=== PATIENT | female | born 1990 | race Caucasian/White ===

== ENCOUNTER 2017-04-25 08:08 | Emergency (ER) | payer MEDICAID ==
[~2017-04-25] VITALS: Ht 152.4 cm; Wt 46.8 kg
[~2017-04-25 08:08] MED LIST: LEXA5TAB PO; ZYPR10TA PO
[2017-04-25 08:13] VITALS: BP 139/68; PULSE 130; RESP 16; TEMP 98.1; O2SAT 98
[2017-04-25] MEDS ORDERED: VENL75TA PO (08:20)
[2017-04-25] MEDS ORDERED: AMIT100T2 PO (08:20)
[2017-04-25] MEDS ORDERED: PERC7.5T13 PO (08:33)
--- NOTE | 2017-04-25 08:34 | PD ---
HPI Chief Complaint: Oral / Dental Pain or Problem Time Seen by Provider: 08:19 Travel History International Travel<30 days: No Contact w/Intl Traveler<30days: No Traveled to known affect area: No History of Present Illness HPI This 26-year-old female is complaining of left-sided tooth pain. She has implants in her upper teeth. Her mandibular teeth are in poor condition she's been told she needs multiple extractions. She started having pain in the left lower posterior molar yesterday. The pain is quite severe. She went to urgent care and was given prescription for ibuprofen and clindamycin. The ibuprofen has not helped. She has not yet started the clindamycin PFS Past Medical History ADHD: Yes Asthma: Yes Autoimmune Disease: No Blood Disorders: No Bipolar Disorder: Yes Cancer: No High Cholesterol: No Chemotherapy: No Chest Pain: No Congestive Heart Failure: No COPD: No Cerebrovascular Accident: No Diabetes: No Diminished Hearing: No Endocrine: No Gastrointestinal Disorders: No Genitourinary: No Hepatitis: No Hypertension: No Immune Disorder: No Musculoskeletal: No Neurologic: No Psychiatric: Yes (hx HBS in September 2005, PTSD) Reproductive: No Respiratory: Yes (ASTHMA) Immunizations Current: Yes Migraines: No Myocardial Infarction: No Seizures: Yes (LAST SEIZURE 2007 YRS AGO) Sickle Cell Disease: No Thyroid Disease: No Ulcer: No Tetanus Vaccination: Unknown ?: Not : 2 Para: 1 Miscarriage: 1 Ectopic : Yes Tubal Ligation: Yes Past Surgical History Appendectomy: No Cholecystectomy: No Other Surgery: No Social History Alcohol Use: No Tobacco Use: Yes (1-2 PPD) Substance Use: No (DENIES) Allergies-Medications (Allergen,Severity, Reaction): Coded Allergies: codeine (Unverified Allergy, Severe, RASH, 04/25/17) diphenhydramine (Unverified Allergy, Severe, TONGUE SWELLING, 04/25/17) penicillin G (Unverified Allergy, Severe, RASH, 04/25/17) penicillin V (Unverified Allergy, Severe, RASH, 04/25/17) ziprasidone (Unverified Allergy, Severe, DECREASED BP/SYNCOPE, 04/25/17) acetaminophen (Unverified Allergy, Unknown, vomiting, 04/25/17) hydrocodone (Unverified Allergy, Unknown, vomiting, 04/25/17) Reported Meds & Prescriptions Reported Meds & Active Scripts Active Reported Amitriptyline (Amitriptyline HCl) 100 Mg Tab 100 Mg PO HS Effexor (Venlafaxine HCl) 75 Mg Tab 75 Mg PO DAILY Review of Systems General / Constitutional: No: Fever, Chills HENT: Positive: Dental Difficulties Cardiovascular: No: Chest Pain or Discomfort Respiratory: No: Shortness of Breath Gastrointestinal: No: Diarrhea Skin: No Rash Physical Exam Narrative GENERAL: Well-developed female SKIN: Focused skin assessment warm/dry. HEAD: Atraumatic. Normocephalic. EYES: Pupils equal and round. No scleral icterus. No injection or drainage. ENT: No nasal bleeding or discharge. Mucous membranes pink and moist. Maxillary teeth are plate in good repair. The mandibular teeth NEC have multiple caries. The left posterior molar is broken off and surrounding gum is quite swollen K: Trachea midline. No JVD. CARDIOVASCULAR: Regular rate and rhythm. No murmur appreciated. RESPIRATORY: No accessory muscle use. Clear to auscultation. Breath sounds equal bilaterally. GASTROINTESTINAL: Abdomen soft, non-tender, nondistended. Hepatic and splenic margins not palpable. MUSCULOSKELETAL: No obvious deformities. No clubbing. No cyanosis. No edema. NEUROLOGICAL: Awake and alert. No obvious cranial nerve deficits. Motor grossly within normal limits. Normal speech. PSYCHIATRIC: Appropriate mood and affect; insight and judgment normal. Data Data Last Documented VS Vital Signs Date Time Temp Pulse Resp B/P (MAP) Pulse Ox O2 Delivery O2 Flow Rate FiO2 04/25/17 08:13 98.1 130 16 139/68 (91) 98 MDM Medical Decision Making Medical Screen Exam Complete: Yes Emergency Medical Condition: Yes Medical Record Reviewed: Yes Differential Diagnosis Differential includes dental caries, abscess Narrative Course Presentation is consistent with abscess. I told her the importance of taking the clindamycin. She is allergic to penicillin. Ibuprofen has not helped her pain. I told him continue the ibuprofen but I will prescribe Percocet for taken in addition to the ibuprofen. Importance of dental follow-up was stressed Diagnosis Primary Impression: Dental abscess Scripts Oxycodone-Acetaminophen (Percocet) 7.5-325 mg Tab 1 TAB PO Q4H Y for PAIN, #15 TAB 0 Refills Prov: James Toth MD 04/25/17 Disposition: 01 DISCHARGE HOME Condition: Stable James Toth MD Apr 25, 2017 08:33
== END 2017-04-25 08:49 | disposition home or self-care (01) ==
LOC: PHED 08:08
DX: K04.7 Periapical abscess without sinus (principal); F31.9 Bipolar disorder, unspecified; F17.200 Nicotine dependence, unspecified, uncomplicated
CPT/HCPCS: 99283

== ENCOUNTER 2017-06-15 14:43 | Emergency (ER) | payer MEDICAID ==
[~2017-06-15] VITALS: Ht 152.4 cm; Wt 47.0 kg
[~2017-06-15 14:43] MED LIST changes: +AMIT100T2 PO; -LEXA5TAB PO; +PERC7.5T13 PO; +VENL75TA PO; -ZYPR10TA PO
[2017-06-15 14:56] VITALS: BP 143/70; PULSE 118; RESP 18; TEMP 98.3; O2SAT 93
== END 2017-06-15 15:37 | disposition left against medical advice (07) ==
LOC: PHEFT 14:43
DX: Z00.00 Encounter for general adult medical examination without abnormal findings (principal)
CPT/HCPCS: 99281

== ENCOUNTER 2017-12-24 21:34 | Inpatient (IN) ==
[2017-12-24] MEDS ORDERED: Sod Chloride 0.9% Inj 1,000 ML IV.SIG ONE (21:47)
[2017-12-24] MEDS ORDERED: Charcoal Activated Liq 25 GM/120 ML Bottle NG/OG ONE (21:55)
--- NOTE | 2017-12-24 21:55 | ED ---
HPI General Chief Complaint: Overdose Stated Complaint: Pysch Eval/DBPD Time Seen by Provider: 12/24/17 21:47 History of Present Illness HPI Narrative: The patient is a 27 year old female who presents to the [facility] emergency department with a history of intentionally overdosing on amitriptyline prior to arrival. The patient reports that she did this at approximately 9:05 PM. The patient reports that she took 14 tablets of her 100 mg amitriptyline. She reports that she does have a history of anxiety, depression, posttraumatic stress disorder, and previous diagnosis of bipolar disorder. She reports that this medication is her medication. She reports that she is also on Effexor and takes Advil as needed pain. She denies ever attempting suicide previously. The patient is tearful, intermittently crying on examination. When asked questions, she is not providing any significant history or reasoning behind this attempted overdose. She repeatedly is asking for her to come back and see her. The patient according to ambulance services had one episode of vomiting after the ingestion approximately 15 minutes after the ingestion. There were no pill fragments noted. LMP: 1-2 weeks ago. Related Data Home Medications Medication Instructions Recorded Confirmed venlafaxine [Effexor XR] 75 mg PO DAILY 12/24/17 12/24/17 Allergies Allergy/AdvReac Type Severity Reaction Status Date / Time codeine Allergy Severe RASH Verified 12/24/17 22:45 diphenhydramine Allergy Severe TONGUE Verified 12/24/17 22:45 SWELLING penicillin G Allergy Severe RASH Verified 12/24/17 22:45 penicillin V Allergy Severe RASH Verified 12/24/17 22:45 ziprasidone Allergy Severe DECREASED Verified 12/24/17 22:45 BP/SYNCOPE acetaminophen Allergy Unknown vomiting Verified 12/24/17 22:45 hydrocodone Allergy Unknown vomiting Verified 12/24/17 22:45 Review of Systems ROS Unobtainable unobtainable due to mental condition (The patient is tearful on examination, resistant to answering questions regarding review of systems her recent history. 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 Medical History Medical History Bipolar disorder (Acute) PTSD (post-traumatic stress disorder) (Acute) Surgical History Surgical History History of bilateral tubal ligation (Acute) Social History Social History Substance History: No History of Abuse Second Hand Smoke Exposure: Yes Smoking Status: Current every day smoker Tobacco Type: Cigarettes Packs Per Day: 1.5 Cigarettes Per Day: 30.0 How Often Do You Have a Drink Containing Alcohol: Never Recent Travel in [facility] within the Last 8 Weeks: No Recent Out of Country Travel within the Last 8 Weeks: No Exam Const General: cooperative, well developed and acute distress (Intermittently tearful on examination, in no medical distress) Nutritional Appearance: well nourished Orientation: alert, awake and oriented x3 HENMT Head: normocephalic and atraumatic Nose: no nasal discharge and no epistaxis Mouth: moist mucous membranes Throat: posterior oropharynx normal and uvula midline Eyes Sclera: normal sclerae Pupils: PERRL Neck Neck: trachea midline and no JVD Resp Effort & Inspection: no use of accessory muscles Auscultation: clear to auscultation bilaterally Cardio Rate: tachycardic (No pulse deficits to the extremities on simultaneous auscultation and palpation of her radial artery) Rhythm: regular rhythm Heart Sounds: no gallops, no murmurs and no rubs GI Inspection: non-distended Palpation: soft, no hepatosplenomegaly and nontender Auscultation: normal bowel sounds Back/Spine/Pelvis Back: no CVA tenderness Skin General: dry skin (warm) Neuro General: alert, awake, oriented x3 and other (No facial asymmetry.) Cranial Nerves: other Speech: speech normal Motor: strength 5/5 throughout and no movement abnormalities noted Sensory Exam: no sensory deficits noted Extrem General: normal to inspection (Plus pulses in all 4 extremities. No calf tenderness on palpation.), no clubbing, no cyanosis and no edema Psych Affect: sad Attitude: cooperative Judgment: poor Course Reevaluation(s) Reevaluation #1: The patient on reevaluation has had a decline in her mentation , increasingly confused, oriented to person, however not place, time, or situation. The patient is becoming agitated. The patient will be given Ativan 1 mg IV. Reevaluation #2: The patient's repeat EKG reveals a sinus tachycardia with heart rate of 143, QRS duration is 113 ms, prolonged compared to the initial EKG , therefore 100 mEq of bicarbonate will be administered. A call was placed back out to poison control regarding this patient's case. The patient's QTC is 440 ms. A call has been placed out to the retail representative regarding admission. Reevaluation #3: The patient was started on a bicarbonate drip after the initial bolus of bicarb per the recommendations of poison control. Consultations Consultation #1: I spoke to Poison Control, Stephania, regarding this patient's case. She recommended the laboratory studies that have been previously ordered. She additionally recommended that the EKG be repeated every 2 hours for at least 3 EKGs. She recommended that if the patient tolerated p.o. that the patient be given a dose of activated charcoal. Time: 21:53 Consultation #2: The patient's case including history, pertinent physical examination findings, and laboratory studies were discussed with Dr. Saldivar, the retail representative. It was agreed that the patient would be admitted to the retail representative 's service. Initial Documented Vital Signs Pulse Oximetry 98 12/24/17 21:47 Last Documented Vital Signs Temperature 98.1 F 12/25/17 16:00 Pulse Rate 106 H 12/25/17 16:00 Respiratory Rate 27 H 12/25/17 16:00 Blood Pressure 107/69 12/25/17 16:00 Pulse Oximetry 98 12/25/17 16:00 Critical Care Time Critical Care Time: Yes Total Critical Care Time: 41 Attestation: Aggregate critical care time was 41 minutes. Time to perform other separately billable procedures was not included in the critical care time. My time did not include minutes spent treating any other patients simultaneously or on activities that did not directly contribute to the patient's treatment. The services I provided to this patient were to treat and/or prevent clinically significant deterioration that could result in: Seizure activity, cardiac dysrhythmia, cardiovascular collapse, respiratory failure I provided critical care services requiring my management, as noted below: Chart data review, documentation time, medication orders and management, vital sign assessments/reviewing monitor data, ordering and reviewing lab tests, ordering and interpreting/reviewing x-rays and diagnostic studies, care of the patient and discussion of the patient with the admitting physicians. Medical Decision Making MDM Narrative Medical decision making narrative: During the course of the patient's emergency department visit, the patient's history, examination, and differential diagnosis were reviewed with the patient. The patient was placed on a marble worker with oximetry and frequent blood pressure monitoring. The patient had IV access obtained and blood work sent for analysis. A diagnostic evaluation was immediately started regarding this patient's try cyclic acid overdose. Poison control was immediately called regarding this patient's case. They reported that if the patient would tolerate a dose of charcoal, activated charcoal could be administered. They recommended every 2 hour EKGs 3. The patient was placed under a [place] act by the police prior to arrival. The patient's Rasmussen act was reviewed. An EKG was done on arrival that shows no evidence of QRS duration prolongation. This will be monitored closely. The patient was initially provided charcoal 50 g p.o. 1. The patient was given normal saline 1 L IV fluid bolus. While the patient was being monitored the patient had alteration of mental status consistent with anticholinergic toxicity from her overdose on amitriptyline. The patient was given Ativan 1 mg IV for agitation. The patient had a second EKG done that showed widening of her QRS and was given 1 amp of bicarbonate followed by a bicarb drip. The patient was repeatedly discussed with poison control by both me and the patient's nurse. The patient's laboratory studies showed no acute abnormality other than the aspirin level was elevated at 8.8 which was repeated to assess for any further increases will be repeated 2 hours after the initial evaluation to assess for any further increases. An ABG was done that showed no evidence of developing hypoxemia or acidosis. The patient's case was discussed with the retail representative who did agree to admit the patient and came down to the emergency department to evaluate the patient. The patient was admitted to the hospital in critical condition and sent to a bed under the care of the retail representative's service. Differential Diagnosis Differential Diagnosis: TCA overdose, versus anticholinergic overdose, versus suicidal gesture, versus depression with suicidal ideations Medical Records Medical records reviewed: Yes I reviewed the patient's medical records. POC Test Results POC Urine Results: Negative Lab Data Lab results reviewed: Yes I reviewed the patient's lab results. Result diagrams: 12/25/17 17:55 12/24/17 22:23 Lab Results 12/24/17 12/24/17 12/24/17 Range/Units 22:20 22:20 22:23 WBC 10.2 (4.0-11.0) th/mm3 RBC 4.58 (4.00-5.30) mil/mm3 Hgb 14.7 (11.6-15.3) gm/dL Hct 42.5 (35.0-46.0) % MCV 93.0 (80.0-100.0) fL MCH 32.2 (27.0-34.0) pg MCHC 34.6 (32.0-36.0) % RDW 12.3 (11.6-17.2) % Plt Count 257 (150-450) th/mm3 MPV 8.9 (7.0-11.0) fL Prelim Diff (Auto) Neut % (Auto) 63.0 (16.0-70.0) % Lymph % (Auto) 29.3 (9.0-44.0) % [place] % (Auto) 5.4 (0.0-8.0) % Eos % (Auto) 1.5 (0.0-4.0) % Baso % (Auto) 0.8 (0.0-2.0) % Neut # (Auto) 6.4 (1.8-7.7) th/mm3 Lymph # (Auto) 3.0 (1.0-4.8) th/mm3 [place] # (Auto) 0.6 (0.0-0.9) th/mm3 Eos # (Auto) 0.2 (0.0-0.4) th/mm3 Baso # (Auto) 0.1 (0.0-0.2) th/mm3 WBC Differential . Differential Comment Auto diff final PT 10.7 (9.8-11.6) sec INR 1.1 Ratio APTT (24.3-30.1) sec Puncture Site Patient Temperature O2 Saturation (90-100) % ABG pH (7.380-7.420) ABG pCO2 (38-42) mmHg ABG pO2 (61-120) mmHg ABG HCO3 (22-26) mmol/L ABG O2 Content (12.0-20.0) Vol % ABG Base Excess (-2-2) mmol/L ABG Methemoglobin (0-2) % Emmanuel Test Hemoglobin (12.0-16.0) G/DL Carboxyhemoglobin (0-4) % O2 Delivery Device Inspired O2 % Critical Value Sodium (136-145) meq/L Potassium (3.5-5.1) meq/L Chloride (98-107) meq/L Carbon Dioxide (21.0-32.0) meq/L Anion Gap (5-15) meq/L BUN (7-18) mg/dL Creatinine (0.50-1.00) mg/dL Estimated GFR (>89) mL/min POC Glucose (68-110) mg/dl Random Glucose (74-106) mg/dL Osmolality (275-295) mosm/kg Calcium (8.5-10.1) mg/dL Magnesium (1.5-2.5) mg/dL Total Bilirubin (0.2-1.0) mg/dL AST (15-37) U/L ALT (10-53) U/L Alkaline Phosphatase (45-117) U/L Total Protein (6.4-8.2) g/dL Albumin (3.4-5.0) g/dL Lipase (73-393) U/L Ur Collection Type Urine Color (Yellw/Straw) Urine Clarity (Clear) Urine pH (5.0-8.5) Ur Specific [place] (1.002-1.035) Urine Protein (Neg-Trace) mg/dL Urine Glucose (UA) (Negative) mg/dL Urine Ketones (Negative) mg/dL Urine Occult Blood (Negative) Urine Nitrate (Negative) Urine Bilirubin (Negative) Urine Urobilinogen (Less than 2) mg/dL Ur Leukocyte Esterase (Negative) Urine RBC (0-3) /hpf Urine WBC (0-5) /hpf Amorphous Sediment (None) /hpf Micro UA Comment Urine Culture Comments Nasal Screen MRSA (PCR) (Negative) Salicylates 8.8 (2.8-20.0) mg/dL Acetaminophen (10.0-30.0) mcg/mL Serum Alcohol (0-5) mg/dL 12/24/17 12/25/17 12/25/17 Range/Units 22:23 00:06 01:10 WBC (4.0-11.0) th/mm3 RBC (4.00-5.30) mil/mm3 Hgb (11.6-15.3) gm/dL Hct (35.0-46.0) % MCV (80.0-100.0) fL MCH (27.0-34.0) pg MCHC (32.0-36.0) % RDW (11.6-17.2) % Plt Count (150-450) th/mm3 MPV (7.0-11.0) fL Prelim Diff (Auto) Neut % (Auto) (16.0-70.0) % Lymph % (Auto) (9.0-44.0) % [place] % (Auto) (0.0-8.0) % Eos % (Auto) (0.0-4.0) % Baso % (Auto) (0.0-2.0) % Neut # (Auto) (1.8-7.7) th/mm3 Lymph # (Auto) (1.0-4.8) th/mm3 [place] # (Auto) (0.0-0.9) th/mm3 Eos # (Auto) (0.0-0.4) th/mm3 Baso # (Auto) (0.0-0.2) th/mm3 WBC Differential Differential Comment PT (9.8-11.6) sec INR Ratio APTT 25.4 (24.3-30.1) sec Puncture Site Right femoral Patient Temperature 98.6 O2 Saturation 90 (90-100) % ABG pH 7.42 (7.380-7.420) ABG pCO2 36 L (38-42) mmHg ABG pO2 78 (61-120) mmHg ABG HCO3 23 (22-26) mmol/L ABG O2 Content 17.1 (12.0-20.0) Vol % ABG Base Excess -0.7 (-2-2) mmol/L ABG Methemoglobin 1.2 (0-2) % Emmanuel Test Hemoglobin 13.5 (12.0-16.0) G/DL Carboxyhemoglobin 5.6 H* (0-4) % O2 Delivery Device Room air Inspired O2 21 % Critical Value Yes Sodium 139 (136-145) meq/L Potassium 3.6 (3.5-5.1) meq/L Chloride 107 (98-107) meq/L Carbon Dioxide 24.7 (21.0-32.0) meq/L Anion Gap 7 (5-15) meq/L BUN 7 (7-18) mg/dL Creatinine 0.71 (0.50-1.00) mg/dL Estimated GFR Greater than 89 (>89) mL/min POC Glucose (68-110) mg/dl Random Glucose 94 (74-106) mg/dL Osmolality 286 (275-295) mosm/kg Calcium 8.8 (8.5-10.1) mg/dL Magnesium 2.1 (1.5-2.5) mg/dL Total Bilirubin 0.2 (0.2-1.0) mg/dL AST 18 (15-37) U/L ALT 17 (10-53) U/L Alkaline Phosphatase 116 (45-117) U/L Total Protein 7.3 (6.4-8.2) g/dL Albumin 4.0 (3.4-5.0) g/dL Lipase 55 L (73-393) U/L Ur Collection Type Urine Color (Yellw/Straw) Urine Clarity (Clear) Urine pH (5.0-8.5) Ur Specific [place] (1.002-1.035) Urine Protein (Neg-Trace) mg/dL Urine Glucose (UA) (Negative) mg/dL Urine Ketones (Negative) mg/dL Urine Occult Blood (Negative) Urine Nitrate (Negative) Urine Bilirubin (Negative) Urine Urobilinogen (Less than 2) mg/dL Ur Leukocyte Esterase (Negative) Urine RBC (0-3) /hpf Urine WBC (0-5) /hpf Amorphous Sediment (None) /hpf Micro UA Comment Urine Culture Comments Nasal Screen MRSA (PCR) (Negative) Salicylates (2.8-20.0) mg/dL Acetaminophen Less than 2.0 L (10.0-30.0) mcg/mL Serum Alcohol Less than 3 (0-5) mg/dL 12/25/17 12/25/17 12/25/17 Range/Units 02:50 05:00 06:13 WBC (4.0-11.0) th/mm3 RBC (4.00-5.30) mil/mm3 Hgb (11.6-15.3) gm/dL Hct (35.0-46.0) % MCV (80.0-100.0) fL MCH (27.0-34.0) pg MCHC (32.0-36.0) % RDW (11.6-17.2) % Plt Count (150-450) th/mm3 MPV (7.0-11.0) fL Prelim Diff (Auto) Neut % (Auto) (16.0-70.0) % Lymph % (Auto) (9.0-44.0) % [place] % (Auto) (0.0-8.0) % Eos % (Auto) (0.0-4.0) % Baso % (Auto) (0.0-2.0) % Neut # (Auto) (1.8-7.7) th/mm3 Lymph # (Auto) (1.0-4.8) th/mm3 [place] # (Auto) (0.0-0.9) th/mm3 Eos # (Auto) (0.0-0.4) th/mm3 Baso # (Auto) (0.0-0.2) th/mm3 WBC Differential Differential Comment PT (9.8-11.6) sec INR Ratio APTT (24.3-30.1) sec Puncture Site Patient Temperature O2 Saturation (90-100) % ABG pH (7.380-7.420) ABG pCO2 (38-42) mmHg ABG pO2 (61-120) mmHg ABG HCO3 (22-26) mmol/L ABG O2 Content (12.0-20.0) Vol % ABG Base Excess (-2-2) mmol/L ABG Methemoglobin (0-2) % Emmanuel Test Hemoglobin (12.0-16.0) G/DL Carboxyhemoglobin (0-4) % O2 Delivery Device Inspired O2 % Critical Value Sodium (136-145) meq/L Potassium (3.5-5.1) meq/L Chloride (98-107) meq/L Carbon Dioxide (21.0-32.0) meq/L Anion Gap (5-15) meq/L BUN (7-18) mg/dL Creatinine (0.50-1.00) mg/dL Estimated GFR (>89) mL/min POC Glucose 107 (68-110) mg/dl Random Glucose (74-106) mg/dL Osmolality (275-295) mosm/kg Calcium (8.5-10.1) mg/dL Magnesium (1.5-2.5) mg/dL Total Bilirubin (0.2-1.0) mg/dL AST (15-37) U/L ALT (10-53) U/L Alkaline Phosphatase (45-117) U/L Total Protein (6.4-8.2) g/dL Albumin (3.4-5.0) g/dL Lipase (73-393) U/L Ur Collection Type Cath Urine Color Yellow (Yellw/Straw) Urine Clarity Clear (Clear) Urine pH Greater/equal 9.0 H (5.0-8.5) Ur Specific [place] 1.011 (1.002-1.035) Urine Protein Negative (Neg-Trace) mg/dL Urine Glucose (UA) 500 H (Negative) mg/dL Urine Ketones Negative (Negative) mg/dL Urine Occult Blood Negative (Negative) Urine Nitrate Negative (Negative) Urine Bilirubin Negative (Negative) Urine Urobilinogen 0.2 (Less than 2) mg/dL Ur Leukocyte Esterase Negative (Negative) Urine RBC 0-3 (0-3) /hpf Urine WBC 0-5 (0-5) /hpf Amorphous Sediment Rare H (None) /hpf Micro UA Comment Culture not ind Urine Culture Comments Culture not ind Nasal Screen MRSA (PCR) Not detected (Negative) Salicylates (2.8-20.0) mg/dL Acetaminophen (10.0-30.0) mcg/mL Serum Alcohol (0-5) mg/dL 12/25/17 12/25/17 12/25/17 Range/Units 06:20 15:35 17:55 WBC 9.4 (4.0-11.0) th/mm3 RBC 4.01 (4.00-5.30) mil/mm3 Hgb 13.0 (11.6-15.3) gm/dL Hct 38.2 (35.0-46.0) % MCV 95.4 (80.0-100.0) fL MCH 32.5 (27.0-34.0) pg MCHC 34.1 (32.0-36.0) % RDW 12.2 (11.6-17.2) % Plt Count 217 (150-450) th/mm3 MPV 8.6 (7.0-11.0) fL Prelim Diff (Auto) Slide review pending Neut % (Auto) 67.8 (16.0-70.0) % Lymph % (Auto) 25.9 (9.0-44.0) % [place] % (Auto) 5.4 (0.0-8.0) % Eos % (Auto) 0.6 (0.0-4.0) % Baso % (Auto) 0.3 (0.0-2.0) % Neut # (Auto) 6.4 (1.8-7.7) th/mm3 Lymph # (Auto) 2.4 (1.0-4.8) th/mm3 [place] # (Auto) 0.5 (0.0-0.9) th/mm3 Eos # (Auto) 0.1 (0.0-0.4) th/mm3 Baso # (Auto) 0.0 (0.0-0.2) th/mm3 WBC Differential Differential Comment . PT (9.8-11.6) sec INR Ratio APTT (24.3-30.1) sec Puncture Site Right radial Patient Temperature 98.6 O2 Saturation 95 (90-100) % ABG pH 7.47 H (7.380-7.420) ABG pCO2 38 (38-42) mmHg ABG pO2 96 (61-120) mmHg ABG HCO3 27 H (22-26) mmol/L ABG O2 Content 17.5 (12.0-20.0) Vol % ABG Base Excess 3.3 H (-2-2) mmol/L ABG Methemoglobin 1.5 (0-2) % Emmanuel Test Present Hemoglobin 13.0 (12.0-16.0) G/DL Carboxyhemoglobin 1.5 (0-4) % O2 Delivery Device Room air Inspired O2 21 % Critical Value No Sodium (136-145) meq/L Potassium (3.5-5.1) meq/L Chloride (98-107) meq/L Carbon Dioxide (21.0-32.0) meq/L Anion Gap (5-15) meq/L BUN (7-18) mg/dL Creatinine (0.50-1.00) mg/dL Estimated GFR (>89) mL/min POC Glucose 114 H (68-110) mg/dl Random Glucose (74-106) mg/dL Osmolality (275-295) mosm/kg Calcium (8.5-10.1) mg/dL Magnesium (1.5-2.5) mg/dL Total Bilirubin (0.2-1.0) mg/dL AST (15-37) U/L ALT (10-53) U/L Alkaline Phosphatase (45-117) U/L Total Protein (6.4-8.2) g/dL Albumin (3.4-5.0) g/dL Lipase (73-393) U/L Ur Collection Type Urine Color (Yellw/Straw) Urine Clarity (Clear) Urine pH (5.0-8.5) Ur Specific [place] (1.002-1.035) Urine Protein (Neg-Trace) mg/dL Urine Glucose (UA) (Negative) mg/dL Urine Ketones (Negative) mg/dL Urine Occult Blood (Negative) Urine Nitrate (Negative) Urine Bilirubin (Negative) Urine Urobilinogen (Less than 2) mg/dL Ur Leukocyte Esterase (Negative) Urine RBC (0-3) /hpf Urine WBC (0-5) /hpf Amorphous Sediment (None) /hpf Micro UA Comment Urine Culture Comments Nasal Screen MRSA (PCR) (Negative) Salicylates (2.8-20.0) mg/dL Acetaminophen (10.0-30.0) mcg/mL Serum Alcohol (0-5) mg/dL Imaging Data Radiologist's impression: Chest X-Ray 12/24/17 21:47 CONCLUSION: No acute cardiopulmonary disease demonstrated. ECG Data Attestation: I personally reviewed and interpreted this ECG as follows: Interpretation: The patient had an EKG done on arrival. The patient's EKG shows a sinus tachycardia rate of 100, QRS duration is 88 ms, QTC [address] segment elevation. The patient had a repeat EKG done that showed a sinus tachycardia, heart rate of 143, QRS duration is 113 ms, QTC 440 ms. This was done at 12:37 AM. It will be repeated in 2 hours at 2:37 AM. Discharge Plan Discharge Disposition Patient Disposition: 30 Still Patient Discharge Details Diagnosis: Drug overdose Physicians Team ED Provider: Kimberly Anthony Primary Care Provider: Primary Care Dipti Boyd Attending Provider: Russ Saldivar Interventions Interventions: ED Discharge Assessment Last Done: 12/25/17 03:50 Vital Signs Last Done: 12/25/17 00:40 Status ED Status: Left Department Discharge Information Discharge Date/Time: 12/25/17 03:30
--- NOTE | 2017-12-24 22:15 | XR ---
EXAM DATE: 12/24/2017 10:05 PM EDT AGE/SEX: 27 years / Female INDICATIONS: Cough. CLINICAL DATA: This is the patient's initial encounter. Patient reports that signs and symptoms have been present for 1 day and indicates a pain score of Nonresponsive. MEDICAL/SURGICAL HISTORY: Non-responsive. Non-responsive. COMPARISON: [facility] [place], CHEST SINGLE AP, 02/22/2016. . FINDINGS: A single AP view of the chest demonstrates the lungs to be symmetrically aerated without evidence of mass, infiltrate or effusion. The cardiomediastinal contours are unremarkable. Osseous structures a re intact. CONCLUSION: No acute cardiopulmonary disease demonstrated. Electronically signed by: Franco Holt MD 12/24/2017 10:14 PM EDT
[2017-12-24 22:45] LABS: Baso # (Auto) 0.1 th/mm3 (0.0-0.2); Baso % (Auto) 0.8 % (0.0-2.0); Eos # (Auto) 0.2 th/mm3 (0.0-0.4); Eos % (Auto) 1.5 % (0.0-4.0); Hematocrit 42.5 % (35.0-46.0); Hemoglobin 14.7 gm/dL (11.6-15.3); Lymph % (Auto) 29.3 % (9.0-44.0); Mean Corpuscular HGB Conc 34.6 % (32.0-36.0); Mean Corpuscular Hemoglobin 32.2 pg (27.0-34.0); Mean Platelet Volume 8.9 fL (7.0-11.0); Mono # (Auto) 0.6 th/mm3 (0.0-0.9); Mono % (Auto) 5.4 % (0.0-8.0); Neut # (Auto) 6.4 th/mm3 (1.8-7.7); Platelet Count 257 th/mm3 (150-450); Red Blood Count 4.58 mil/mm3 (4.00-5.30); Red Cell Distribution Width 12.3 % (11.6-17.2); White Blood Count 10.2 th/mm3 (4.0-11.0)
[2017-12-24 22:54] LABS: Alanine Aminotransferase 17 U/L (10-53); Anion Gap 7 meq/L (5-15); Aspartate Aminotransferase 18 U/L (15-37); Blood Urea Nitrogen 7 mg/dL (7-18); Calcium 8.8 mg/dL (8.5-10.1); Carbon Dioxide 24.7 meq/L (21.0-32.0); Chloride 107 meq/L (98-107); Glomerular Filtration Rate Greater Than 89 mL/min (>89); Glucose,Random 94 mg/dL (74-106); Lipase 55 U/L (73-393); Magnesium 2.1 mg/dL (1.5-2.5); Potassium 3.6 meq/L (3.5-5.1); Sodium 139 meq/L (136-145)
[2017-12-24 22:58] LABS: Alkaline Phosphatase 116 U/L (45-117); Total Protein 7.3 g/dL (6.4-8.2)
[2017-12-24 22:59] LABS: INR 1.1 Ratio; Prothrombin Time 10.7 sec (9.8-11.6)
[2017-12-25] MEDS ORDERED: Sodium Bicarbonate 8.4% Inj 50 MEQ/50 ML Syringe IV.PUSH ONE (00:08)
[2017-12-25] MEDS: Sod Chloride 0.9% Inj 1,000 ML IV.CONT SCH ×3 (00:38→18:13)
[2017-12-25] MEDS ORDERED: Acetaminophen 325 MG Tablet PO PRN (01:18)
[2017-12-25] MEDS ORDERED: Bisacodyl 10 MG Supp RECTAL PRN (01:18)
[2017-12-25 01:27] LABS: ABG Base Excess -0.7 mmol/L (-2-2); ABG PCO2 36 mmHg (38-42); ABG PO2 78 mmHg (61-120)
--- NOTE | 2017-12-25 01:27 | P.HPCC ---
History of Present Illness Primary Care Physician: No Primary Care Physician History of Present Illness: 27 year old female presents with a history of intentionally overdosing on amitriptyline prior to arrival. The patient reports that she did this at approximately 9:05 PM. The patient reports that she took 14 tablets of her 100 mg amitriptyline. She does have a history of anxiety, depression, posttraumatic stress disorder, and previous diagnosis of bipolar disorder. She is also on Effexor and takes Advil as needed pain. She denies ever attempting suicide previously. The patient is tearful, intermittently crying during my assessment. She is not providing any significant history or reasoning behind this attempted overdose. She repeatedly is asking for her to come back and see her. The patient according to ambulance services had one episode of vomiting after the ingestion approximately 15 minutes after the ingestion. There were no pill fragments noted. Poison Control Center was contacted by ED attending the patient was started on sodium bicarbonate drip due to prolonged QT interval on EKG. Inpatient Certification: I certify that the inpatient services were ordered in accordance with Medicare regulations governing the order. This includes certification that hospital inpatient services are reasonable and necessary and in the case of services not specified as inpatient-only under 42 CFR 419.22(n), that they are appropriately provided as inpatient services in accordance to with the 2-midnight benchmark under 43 CFR 412.3(e) Estimated Total Length of Stay (Days): 5 Plans for Post Hospital Care: Not yet determined Review of Systems All other systems reviewed negative except as stated in HPI, unobtainable due to mental condition PMFSH - History History Provided By: Patient, Supervisor Seaming / EMT - Medical History Medical History: Medical History (Last Updated 12/24/17 @ 21:58 by Kimberly Anthony MD) Bipolar disorder PTSD (post-traumatic stress disorder) - Surgical History Surgical History: Surgical History (Last Updated 12/24/17 @ 21:59 by Kimberly Anthony MD) History of bilateral tubal ligation - Tobacco History Second Hand Smoke Exposure: Yes Tobacco Use In Past 30 Days: Yes Smoking Status: Current every day smoker Tobacco Type: Cigarettes Packs Per Day: 1.5 Cigarettes Per Day: 30.0 - Alcohol History How Often Do You Have a Drink Containing Alcohol: Never - Substance Use History Substance History: No History of Abuse - Travel History Recent Travel in the [place] Within the Last 8 Weeks: No Recent Travel Out of the Country Within the Last 8 Weeks: No - Immunization History Tetanus Immunization: Unsure Hx Influenza Vaccine This Season: No Medications and Allergies Active Medications: Active Medications Acetaminophen (Tylenol) 650 mg PO Q6H PRN PRN Reason: PAIN 1-10 AND/OR FEVER >101F Al Hydroxide/Mg Hydroxide (Milk Of Magnesia Liq) 30 ml PO Q12H PRN PRN Reason: Mild Constipation Albuterol (Duoneb Neb (Prn)) 1 ampul NEB Q2HR NEB PRN PRN Reason: WHEEZING Bisacodyl (Dulcolax Supp) 10 mg RECTAL DAILY PRN PRN Reason: SEVERE CONSITIPATION Chlorhexidine Gluconate (Chlorhexidine 2% Cloth) 3 pack TOPICAL DAILY@0400 [facility] Stop: 12/30/17 03:59 Chlorhexidine Gluconate (Chlorhexidine 2% Cloth) 3 pack TOPICAL DAILY@0400 PRN PRN Reason: Extra cloth needed Stop: 12/30/17 03:59 Enoxaparin Sodium (Lovenox Inj) 40 mg SQ Q24H [facility] Famotidine (Pepcid Pf Inj) 20 mg IV.PUSH Q12HR [facility] Sodium Chloride (Ns Inj) 1,000 mls @ 125 mls/hr IV.CONT .Q8H [facility] Last Admin: 12/25/17 00:38 Dose: 125 mls/hr Sodium Bicarbonate 150 meq/ (Dextrose) 1,000 mls @ 125 mls/hr IV.CONT .Q8H [facility] Lactulose (Lactulose Liq) 30 ml PO DAILY PRN PRN Reason: SEVERE CONSITIPATION Lorazepam (Ativan Inj) 1 mg IV.PUSH Q1H PRN PRN Reason: Agitation/sedation Ondansetron HCl (Zofran Inj) 4 mg IV.PUSH Q6H PRN PRN Reason: NAUSEA OR VOMITING Senna/Docusate Sodium (Wendi-Colace) 1 tab PO BID [facility] Sennosides (Senokot) 17.2 mg PO Q12H PRN PRN Reason: Moderate Constipation Sodium Chloride (Ns Flush) 2 ml IV.FLUSH BID [facility] Sodium Chloride (Ns Flush) 2 ml IV.FLUSH PRN PRN PRN Reason: FLUSH AFTER USING IV ACCESS Allergies Allergy/AdvReac Type Severity Reaction Status Date / Time codeine Allergy Severe RASH Verified 12/24/17 22:45 diphenhydramine Allergy Severe TONGUE Verified 12/24/17 22:45 SWELLING penicillin G Allergy Severe RASH Verified 12/24/17 22:45 penicillin V Allergy Severe RASH Verified 12/24/17 22:45 ziprasidone Allergy Severe DECREASED Verified 12/24/17 22:45 BP/SYNCOPE acetaminophen Allergy Unknown vomiting Verified 12/24/17 22:45 hydrocodone Allergy Unknown vomiting Verified 12/24/17 22:45 Home Medications Medication Instructions Recorded Confirmed Type venlafaxine [Effexor XR] 75 mg PO DAILY 12/24/17 12/24/17 History Results - Labs CBC & Chem 7: 12/24/17 22:20 12/24/17 22:23 Labs: Short CBC 12/24/17 Range/Units 22:20 WBC 10.2 (4.0-11.0) th/mm3 Hgb 14.7 (11.6-15.3) gm/dL Hct 42.5 (35.0-46.0) % Plt Count 257 (150-450) th/mm3 BMP 12/24/17 22:23 Sodium 139 Potassium 3.6 Chloride 107 Carbon Dioxide 24.7 BUN 7 Creatinine 0.71 Calcium 8.8 Liver Function 12/24/17 Range/Units 22:23 Total Bilirubin 0.2 (0.2-1.0) mg/dL AST 18 (15-37) U/L ALT 17 (10-53) U/L Alkaline Phosphatase 116 (45-117) U/L Albumin 4.0 (3.4-5.0) g/dL - Imaging Impressions Chest X-Ray 12/24/17 21:47 CONCLUSION: No acute cardiopulmonary disease demonstrated. - ABG Attestation: I personally reviewed and interpreted this ABG as follows: Exam Vital signs: Vital Signs 12/24/17 21:47 12/24/17 22:39 12/24/17 22:59 Temperature 97.8 F Pulse Rate 114 H Respiratory Rate 14 Blood Pressure 134/77 Pulse Oximetry 98 97 99 12/25/17 00:18 12/25/17 00:40 Temperature Pulse Rate 143 H 110 H Respiratory Rate 14 14 Blood Pressure 143/73 H 119/70 Pulse Oximetry 100 Intake & Output 12/24/17 12/24/17 12/25/17 06:59 18:59 06:59 Weight 100 kg - Constitutional moderate distress - Routine HEENT Exam Head: Present: normocephalic, atraumatic Eye: Present: PERRL ENT: Present: mucous membranes moist - Routine Neck Exam Present: supple, full ROM. Absent: JVD, carotid bruit - Routine Chest/Breast/Axilla Exam Chest wall: Absent: tenderness - Routine Respiratory Exam Absent: accessory muscle use, rales, respiratory distress, stridor, wheezes, crackles - Routine Cardiovascular Exam Present: RRR, S1, S2 - Routine Abdominal Exam Present: soft, normoactive bowel sounds - Routine Extremities Exam Absent: cyanosis, clubbing, edema - Routine Skin Exam Present: intact. Absent: cyanosis, erythema - Routine Neurological Exam Present: alert, oriented X3, normal reflexes Caprini VTE Risk Assessment Caprini VTE Risk Assessment: Moderate/High Risk (score >= 2) Caprini Risk Assessment Model: Point Value = 1 Point Value = 2 Point Value = 3 Point Value = 5 Age 41-60 Minor surgery BMI > 25 kg/m2 Swollen legs Varicose veins or History of unexplained or recurrent spontaneous Oral contraceptives or hormone replacement Sepsis (< 1 month) Serious lung disease, including pneumonia (< 1 month) Abnormal pulmonary function Acute myocardial infarction Congestive heart failure (< 1 month) History of inflammatory bowel disease Medical patient at bed rest Age 61-74 Arthroscopic surgery Major open surgery (> 45 min) Laparoscopic surgery (> 45 min) Malignancy Confined to bed (> 72 hours) Immobilizing plaster cast Central venous access Age >= 75 History of VTE Family history of VTE Factor V Leiden Prothrombin [id number] Lupus anticoagulant Anticardiolipin antibodies Elevated serum homocysteine Heparin-induced thrombocytopenia Other congenital or acquired thrombophilia Stroke (< 1 month) Elective arthroplasty Hip, pelvis, or leg fracture Acute spinal cord injury (< 1 month) Prophylaxis Regimen: Total Risk Factor Score Risk Level Prophylaxis Regimen 0-1 Low Early ambulation 2 Moderate Order ONE of the following: *Sequential Compression Device (SCD) *Heparin 5000 units SQ BID 3-4 Higher Order ONE of the following medications: *Heparin 5000 units SQ TID *Enoxaparin/Lovenox 40 mg SQ daily (WT < 150 kg, CrCl > 30 mL/min) *Enoxaparin/Lovenox 30 mg SQ daily (WT < 150 kg, CrCl > 10-29 mL/min) *Enoxaparin/Lovenox 30 mg SQ BID (WT < 150 kg, CrCl > 30 mL/min) AND/OR *Sequential Compression Device (SCD) 5 or more Highest Order ONE of the following medications: *Heparin 5000 units SQ TID (Preferred with Epidurals) *Enoxaparin/Lovenox 40 mg SQ daily (WT < 150 kg, CrCl > 30 mL/min) *Enoxaparin/Lovenox 30 mg SQ daily (WT < 150 kg, CrCl > 10-29 mL/min) *Enoxaparin/Lovenox 30 mg SQ BID (WT < 150 kg, CrCl > 30 mL/min) AND *Sequential Compression Device (SCD) Assessment and Plan - Assessment and Plan Plan: Amitriptyline overdose -Bicarbonate drip -Frequent labs -Telemetry and frequent EKGs -Poison Control Center appreciated -Neuro checks per unit protocol Bipolar disorder -Hold home meds due to overdose -Psychiatry consultation DVT GI prophylaxis -Teds SCDs -Subcu Lovenox -Pepcid Critical Care: The total critical care time was 35 minutes. Time to perform other separately billable procedures was not included in the critical care time.
[2017-12-25] MEDS: Sodium Bicarbonate 8.4% Inj 150 MEQ in Dextrose 5% in Water Inj 850 ML IV.CONT SCH ×6 (02:27→19:00)
[2017-12-25] MEDS ORDERED: Chlorhexidine Gluconate 2% 1 Pack (2 Cloths) TOPICAL PRN (04:00)
[2017-12-25] MEDS: Chlorhexidine Gluconate 2% 1 Pack (2 Cloths) TOPICAL SCH (04:30)
[2017-12-25] MEDS: Enoxaparin Inj 40 MG/0.4 ML Syringe SQ SCH (06:14)
[2017-12-25] MEDS: Famotidine PF Inj 20 MG/2 ML Vial IV.PUSH SCH ×2 (08:34→21:19)
[2017-12-25] MEDS: Senna/Docusate Sodium 8.6/50 MG Tablet PO SCH ×2 (09:41→21:19)
[2017-12-25 10:20] LABS: Bilirubin,Urine Negative (Negative); Clarity,Urine Clear (Clear); Color,Urine Yellow (Yellw/Straw); Glucose,Urine (UA) 500 mg/dL (Negative); Leukocyte Esterase,Urine Negative (Negative); Nitrite,Urine Negative (Negative); PH,Urine Greater/Equal 9.0 (5.0-8.5); Urobilinogen,Urine 0.2 mg/dL (Less than 2)
[2017-12-25 10:21] LABS: Specific Gravity,Urine 1.011 (1.002-1.035)
[2017-12-25 13:23] LABS: RBC,Urine 0-3 /hpf (0-3)
[2017-12-25 13:24] LABS: Amorphous Sediment,Urine Rare /hpf; WBC,Urine 0-5 /hpf (0-5)
[2017-12-25 15:41] LABS: ABG Base Excess 3.3 mmol/L (-2-2); ABG PCO2 38 mmHg (38-42); ABG PO2 96 mmHG (61-120)
--- NOTE | 2017-12-25 17:47 | P.CONPSY ---
Provisional Diagnosis Admission Date: December 25, 2017 00:24 [place] I.: Adjustment disorder with depressed mood, bipolar disorder by history History of Present Illness Service: Psychiatry Consult date: 12/25/17 Reason for Consult: Intentional overdose Primary Care Provider: No Primary Care Physician Family Provider: No Primary Care Physician History of Present Illness: Patient is a 27-year-old woman, , has 1 6-year-old daughter, unemployed, in school, with a past psychiatric history of bipolar disorder, ODD , PTSD, anxiety, with one previous psychiatric admission in 2006, no previous suicide attempts, history of self injurious behavior via cutting, with a substance use history significant for occasional marijuana use, with a past medical history of asthma as per chart, childhood epilepsy, who was brought in under [place] act due to intentional overdose in a suicide attempt which patient had overdosed on amitriptyline, currently in critical care unit for medical stabilization which psychiatry was consulted for evaluation. Patient was found lying hospital bed asleep was able to wake up to interact with interview noted to be tearful throughout interview at times as well as a irritable toward end of interview. Patient states that for the past couple of weeks she has been feeling "horrible" stating that she had been feeling upset that had been working a lot and not having enough time with the family and having recent arguments with him. Patient states that prior to admission she recalls "screaming and yelling at home" and stating that knowing what to do and had told her during argument that if he left she would not be here referring to ending her life. Patient states that she had taken a whole bottle of her medications in front of him which she had attempted to induce vomiting and was subsequently brought to the hospital for treatment. Patient states she is feeling scared that this is something that she could do and regretting having attempted to end her life stated that she wants to be alive for her daughter. She currently reports feeling sad, denying any further suicidal ideations, denies any perceptual disturbances or delusions at this time. Patient was advised that she will likely require inpatient psychiatric stabilization after medical clearance where she did not agree with him he had become upset and irritable toward end of interview. Family psychiatric history: Patient reports mother with bipolar disorder, sister with anxiety, no suicides in the family Past psychiatric history: Previous psychiatric diagnoses of bipolar disorder, ODD, PTSD, anxiety, with one previous psychiatric admission in 2006, denies any previous suicide attempt reports self-injurious behavior via cutting last time being years ago although reports having cut herself recently prior to admission. Patient denies any history of abuse. Patient reports outpatient mental health follow-up at [facility] Patient reports previous psychiatric medication trials include Effexor and amitriptyline but also history of use of Abilify, BuSpar, Adderall, Ativan and lithium. Substance use history: Tobacco use (+), denies any alcohol use and reports occasional marijuana use, twice per years last time being 1 week ago and reports smoking about 2 blunts. Patient denies use of any other drugs. Past medical history: Asthma as per chart, patient reports childhood epilepsy Allergies: Penicillin, Geodon, Benadryl, codeine Social history: , has 1 6-year-old daughter, unemployed, currently in school, no background, no asked to firearms. Review of Systems All other systems reviewed negative except as stated in HPI Constitutional: Reports weakness Neurologic: Reports confusion, Reports memory loss (Surrounding overdose) [facility] - History History Provided By: Patient, Medical Record - Medical History Medical History: Medical History (Last Updated 12/24/17 @ 21:58 by Kimberly Anthony MD) Bipolar disorder PTSD (post-traumatic stress disorder) - Surgical History Surgical History: Surgical History (Last Updated 12/24/17 @ 21:59 by Kimberly Anthony MD) History of bilateral tubal ligation - Tobacco History Second Hand Smoke Exposure: Yes Tobacco Use In Past 30 Days: Yes Smoking Status: Current every day smoker Tobacco Type: Cigarettes Packs Per Day: 1.5 Cigarettes Per Day: 30.0 - Alcohol History How Often Do You Have a Drink Containing Alcohol: Never - Substance Use History Substance History: No History of Abuse - Travel History Recent Travel in the [place] Within the Last 8 Weeks: No Recent Travel Out of the Country Within the Last 8 Weeks: No - Immunization History Tetanus Immunization: Unsure Hx Influenza Vaccine This Season: No Medications and Allergies Active Medications: Active Medications Acetaminophen (Tylenol) 650 mg PO Q6H PRN PRN Reason: PAIN 1-10 AND/OR FEVER >101F Al Hydroxide/Mg Hydroxide (Milk Of Magnesia Liq) 30 ml PO Q12H PRN PRN Reason: Mild Constipation Albuterol (Duoneb Neb (Prn)) 1 ampul NEB Q2HR NEB PRN PRN Reason: WHEEZING Bisacodyl (Dulcolax Supp) 10 mg RECTAL DAILY PRN PRN Reason: SEVERE CONSITIPATION Chlorhexidine Gluconate (Chlorhexidine 2% Cloth) 3 pack TOPICAL DAILY@0400 [facility] Stop: 12/30/17 03:59 Last Admin: 12/25/17 04:30 Dose: 3 pack Chlorhexidine Gluconate (Chlorhexidine 2% Cloth) 3 pack TOPICAL DAILY@0400 PRN PRN Reason: Extra cloth needed Stop: 12/30/17 03:59 Enoxaparin Sodium (Lovenox Inj) 40 mg SQ Q24H [facility] Last Admin: 12/25/17 06:14 Dose: 40 mg Famotidine (Pepcid Pf Inj) 20 mg IV.PUSH Q12HR [facility] Last Admin: 12/25/17 08:34 Dose: 20 mg Sodium Chloride (Ns Inj) 1,000 mls @ 125 mls/hr IV.CONT .Q8H [facility] Last Admin: 12/25/17 09:40 Dose: 125 mls/hr Sodium Bicarbonate 150 meq/ (Dextrose) 1,000 mls @ 125 mls/hr IV.CONT .Q8H [facility] Last Admin: 12/25/17 11:00 Dose: 125 mls/hr Lactulose (Lactulose Liq) 30 ml PO DAILY PRN PRN Reason: SEVERE CONSITIPATION Lorazepam (Ativan Inj) 1 mg IV.PUSH Q1H PRN PRN Reason: Agitation/sedation Last Admin: 12/25/17 15:17 Dose: 1 mg Ondansetron HCl (Zofran Inj) 4 mg IV.PUSH Q6H PRN PRN Reason: NAUSEA OR VOMITING Senna/Docusate Sodium (Wendi-Colace) 1 tab PO BID [facility] Last Admin: 12/25/17 09:41 Dose: Not Given Sennosides (Senokot) 17.2 mg PO Q12H PRN PRN Reason: Moderate Constipation Sodium Chloride (Ns Flush) 2 ml IV.FLUSH BID [facility] Last Admin: 12/25/17 08:35 Dose: Not Given Sodium Chloride (Ns Flush) 2 ml IV.FLUSH PRN PRN PRN Reason: FLUSH AFTER USING IV ACCESS Allergies Allergy/AdvReac Type Severity Reaction Status Date / Time codeine Allergy Severe RASH Verified 12/24/17 22:45 diphenhydramine Allergy Severe TONGUE Verified 12/24/17 22:45 SWELLING penicillin G Allergy Severe RASH Verified 12/24/17 22:45 penicillin V Allergy Severe RASH Verified 12/24/17 22:45 ziprasidone Allergy Severe DECREASED Verified 12/24/17 22:45 BP/SYNCOPE acetaminophen Allergy Unknown vomiting Verified 12/24/17 22:45 hydrocodone Allergy Unknown vomiting Verified 12/24/17 22:45 Home Medications Medication Instructions Recorded Confirmed Type venlafaxine [Effexor XR] 75 mg PO DAILY 12/24/17 12/24/17 History Exam Vital signs: Vital Signs 12/24/17 21:47 12/24/17 22:39 12/24/17 22:59 Temperature 97.8 F Pulse Rate 114 H Respiratory Rate 14 Blood Pressure 134/77 Pulse Oximetry 98 97 99 12/25/17 00:18 12/25/17 00:40 12/25/17 01:30 Temperature Pulse Rate 143 H 110 H Respiratory Rate 14 14 Blood Pressure 143/73 H 119/70 Pulse Oximetry 100 98 12/25/17 02:25 12/25/17 02:41 12/25/17 04:00 Temperature Pulse Rate 111 H 111 H 96 H Respiratory Rate 16 14 13 Blood Pressure 118/72 118/72 103/60 Pulse Oximetry 98 98 99 12/25/17 05:00 12/25/17 06:00 12/25/17 07:35 Temperature Pulse Rate 96 H 90 Respiratory Rate 28 H 13 Blood Pressure 124/81 115/93 H Pulse Oximetry 99 99 98 12/25/17 08:00 12/25/17 12:00 Temperature 97.5 F L 97.9 F Pulse Rate 83 81 Respiratory Rate 12 12 Blood Pressure 109/71 124/76 Pulse Oximetry 98 98 Intake & Output 12/24/17 12/25/17 12/25/17 18:59 06:59 18:59 Intake Total 0 / 0 1999 Output Total 400 / 400 Balance -400 / -400 1999 Weight 43.5 kg Intake: IV 1999 NS Inj 1,000 ML @ 125 mls/hr IV 1000 / 1000 .CONT .Q8H [facility] Rx#:[id number] Sodium Bicarbonate 8.4% Inj 150 1000 / 1000 MEQ In D5W Inj 850 ML @ 125 mls/hr IV.CONT .Q8H [facility] Rx#: [id number] Oral 0 / 0 Output: Urine Amount (Catheter) 400 / 400 Indwelling Urethral Catheter 400 / 400 Other: Weight On Admission 43.5 kg Narrative: Patient not noted to be in acute distress, no gross motor abnormalities, no tremors or EPS, no noted psychomotor retardation or agitation. Mental Status Examination Appearance: Disheveled Consciousness: Alert Orientation: Person, Place Speech: Unremarkable Language: Adequate Fund of Knowledge: Inadequate Attention and Concentration: Inadequate Memory: Impaired (Surrounding overdose) Mood: Sad Affect: Irritable (Toward end of interview), Sad, Other (Tearful) Thought Process & Associations: Intact, Linear Thought Content: Appropriate Hallucination Type: None Delusion Type: None Suicidal Ideation: Yes (Denies today) Suicidal Plan: No Suicidal Intention: Yes Homicidal Ideation: No Homicidal Plan: No Homicidal Intention: No Insight: Fair Judgment: Poor Assessment and Plan - Assessment (1) Adjustment disorder with depressed mood Code(s): F43.21 - Adjustment disorder with depressed mood Status: Acute - Plan Plan: Estimated LOS: [] days Patient is a 19-year-old woman, who carries a diagnosis of bipolar disorder, ODD, PTSD, anxiety disorder, with one previous psychiatric admission in 2006, no previous suicide attempts, history of self-injurious behavior via cutting noted with cluster B personality traits, who was admitted due to recent suicide attempt via overdose in the context of recent argument with , currently undergoing medical stabilization and critical care unit, who will require psychiatric inpatient stabilization after medical clearance. Patient had an intentional suicide attempt, which patient at elevated risk at this time for self-harm but will have chronic risk due to history of self-injurious behavior, borderline personality traits, poor impulse control. At this time will recommend deferring start of psychotropic medications until medically stable. [facility] act will remain in place until transferred to the inpatient psychiatry unit once medically cleared. If patient requires stepdown unit on the medical floor we will recommend patient to have one-to-one observation for safety. Collateral information pending. Consult appreciated. Justification for Continued Inpatient Stay: At risk of further decompensation a lower level of care.
[2017-12-25 18:32] LABS: Baso % (Auto) 0.3 % (0.0-2.0); Eos # (Auto) 0.1 th/mm3 (0.0-0.4); Eos % (Auto) 0.6 % (0.0-4.0); Hematocrit 38.2 % (35.0-46.0); Lymph # (Auto) 2.4 th/mm3 (1.0-4.8); Lymph % (Auto) 25.9 % (9.0-44.0); Mean Corpuscular HGB Conc 34.1 % (32.0-36.0); Mean Corpuscular Hemoglobin 32.5 pg (27.0-34.0); Mean Corpuscular Volume 95.4 fL (80.0-100.0); Mean Platelet Volume 8.6 fL (7.0-11.0); Mono # (Auto) 0.5 th/mm3 (0.0-0.9); Mono % (Auto) 5.4 % (0.0-8.0); Neut # (Auto) 6.4 th/mm3 (1.8-7.7); Neut % (Auto) 67.8 % (16.0-70.0); Platelet Count 217 th/mm3 (150-450); Red Blood Count 4.01 mil/mm3 (4.00-5.30); Red Cell Distribution Width 12.2 % (11.6-17.2); White Blood Count 9.4 th/mm3 (4.0-11.0)
[2017-12-25 18:50] LABS: Alanine Aminotransferase 13 U/L (10-53); Albumin 2.8 g/dL (3.4-5.0); Alkaline Phosphatase 86 U/L (45-117); Anion Gap 7 meq/L (5-15); Aspartate Aminotransferase 15 U/L (15-37); Blood Urea Nitrogen 2 mg/dL (7-18); Calcium 7.5 mg/dL (8.5-10.1); Carbon Dioxide 25.6 meq/L (21.0-32.0); Chloride 110 meq/L (98-107); Glomerular Filtration Rate Greater Than 89 mL/min (>89); Glucose,Random 106 mg/dL (74-106); Sodium 143 meq/L (136-145); Total Protein 5.8 g/dL (6.4-8.2)
[2017-12-25 18:53] LABS: Potassium 2.9 meq/L (3.5-5.1)
[2017-12-25] MEDS ORDERED: Magnesium Sulfate Inj 4 GM in Sodium Chlor 0.9% Inj 92 ML IV.SIG PRN (20:35)
[2017-12-25] MEDS ORDERED: Magnesium Oxide 400 MG Tablet PO PRN (20:35)
[2017-12-25] MEDS ORDERED: Potassium Chlor 40 mEq Premix 40 MEQ/100 ML PIGGYBACK IV.SIG PRN ×2 (20:35)
[2017-12-25] MEDS ORDERED: Potassium Chloride 25 MEQ Effervescent Tablet PO PRN (20:35)
[2017-12-25] MEDS ORDERED: Potassium Phosphate Inj 30 MMOL in Sodium Chlor 0.9% Inj 250 ML IV.SIG PRN (20:35)
[2017-12-25] MEDS ORDERED: Potassium Phosphate 500 MG Soluble Tablet PO PRN ×2 (20:35)
[2017-12-25] MEDS ORDERED: Sodium Phosphate Inj 30 MMOL in Sodium Chlor 0.9% Inj 250 ML IV.SIG PRN (20:35)
[2017-12-25] MEDS ORDERED: Magnesium Sulfate Inj 2 GM in Sodium Chlor 0.9% Inj 96 ML IV.SIG PRN (20:35)
[2017-12-25] MEDS ORDERED: Potassium Chlor 20 mEq Premix 20 MEQ/100 ML PIGGYBACK IV.SIG PRN (20:35)
[2017-12-25] MEDS: Potassium Chlor 20 mEq Premix 20 MEQ/100 ML PIGGYBACK IV.SIG PRN ×2 (22:16→23:18)
[2017-12-26] MEDS: Potassium Chlor 20 mEq Premix 20 MEQ/100 ML PIGGYBACK IV.SIG PRN ×2 (01:19→03:50)
[2017-12-26] MEDS: Sodium Bicarbonate 8.4% Inj 150 MEQ in Dextrose 5% in Water Inj 850 ML IV.CONT SCH ×2 (03:57)
[2017-12-26 04:27] LABS: Baso % (Auto) 0.3 % (0.0-2.0); Eos # (Auto) 0.1 th/mm3 (0.0-0.4); Eos % (Auto) 0.8 % (0.0-4.0); Hematocrit 37.5 % (35.0-46.0); Hemoglobin 12.7 gm/dL (11.6-15.3); Lymph # (Auto) 2.9 th/mm3 (1.0-4.8); Lymph % (Auto) 37.1 % (9.0-44.0); Mean Corpuscular HGB Conc 33.8 % (32.0-36.0); Mean Corpuscular Hemoglobin 31.6 pg (27.0-34.0); Mean Corpuscular Volume 93.4 fL (80.0-100.0); Mean Platelet Volume 8.8 fL (7.0-11.0); Mono # (Auto) 0.3 th/mm3 (0.0-0.9); Mono % (Auto) 4.4 % (0.0-8.0); Neut # (Auto) 4.5 th/mm3 (1.8-7.7); Neut % (Auto) 57.4 % (16.0-70.0); Platelet Count 210 th/mm3 (150-450); Red Blood Count 4.01 mil/mm3 (4.00-5.30); Red Cell Distribution Width 12.4 % (11.6-17.2); White Blood Count 7.9 th/mm3 (4.0-11.0)
[2017-12-26 04:36] LABS: Activated Partial Thrombo Time 26.4 sec (24.3-30.1); INR 1.1 Ratio; Prothrombin Time 11.4 sec (9.8-11.6)
[2017-12-26 04:58] LABS: Alanine Aminotransferase 15 U/L (10-53); Albumin 2.9 g/dL (3.4-5.0); Alkaline Phosphatase 86 U/L (45-117); Anion Gap 5 meq/L (5-15); Aspartate Aminotransferase 14 U/L (15-37); Blood Urea Nitrogen 2 mg/dL (7-18); Calcium 7.3 mg/dL (8.5-10.1); Carbon Dioxide 27.1 meq/L (21.0-32.0); Chloride 111 meq/L (98-107); Glomerular Filtration Rate Greater Than 89 mL/min (>89); Glucose,Random 89 mg/dL (74-106); Magnesium 1.9 mg/dL (1.5-2.5); Phosphorus 1.5 mg/dL (2.5-4.9); Potassium 3.9 meq/L (3.5-5.1); Sodium 143 meq/L (136-145); Total Protein 5.5 g/dL (6.4-8.2)
[2017-12-26] MEDS: Chlorhexidine Gluconate 2% 1 Pack (2 Cloths) TOPICAL SCH (05:54)
[2017-12-26] MEDS: Enoxaparin Inj 40 MG/0.4 ML Syringe SQ SCH (05:55)
--- NOTE | 2017-12-26 07:37 | ECG ---
Date Performed: 12/25/2017 Time Performed: 06:56:18 PTAGE: 27 years EKG: Sinus rhythm . Indeterminate axis Poor R wave progression - probable normal variant Low QRS voltages in precordial leads Borderline ECG PREVIOUS TRACING : 12/25/2017 00.00 DOCTOR: Singh Benitez Interpretating Date/Time 12/26/2017 07:33:05
--- NOTE | 2017-12-26 07:41 | ECG ---
Date Performed: 12/25/2017 Time Performed: 00:00:37 PTAGE: 27 years EKG: POSSIBLE ATRIAL FLUTTER INDETERMINATE AXIS MODERATE INTRAVENTRICULAR CONDUCTION DELAY ABNOR MAL RHYTHM ECG PREVIOUS TRACING : 12/24/2017 21.52 DOCTOR: Singh Benitez Interpretating Date/Time 12/26/2017 07:36:07
--- NOTE | 2017-12-26 07:44 | ECG ---
Date Performed: 12/24/2017 Time Performed: 21:52:08 PTAGE: 27 years EKG: SINUS TACHYCARDIA ABNORMAL RHYTHM ECG PREVIOUS TRACING : 02/22/2016 11.29 DOCTOR: Singh Benitez Interpretating Date/Time 12/26/2017 07:37:41
[2017-12-26] MEDS: Senna/Docusate Sodium 8.6/50 MG Tablet PO SCH (08:53)
[2017-12-26] MEDS: Famotidine PF Inj 20 MG/2 ML Vial IV.PUSH SCH (08:53)
--- NOTE | 2017-12-26 14:06 | P.PNIM ---
Subjective Interval history: Patient says that shortness of breath and cough productive of white sputum continues. Denies any chest pain. Denies any nausea or vomiting. Physical Exam Vital signs: Vital Signs 12/25/17 16:00 12/25/17 19:00 12/25/17 20:00 Temperature 98.1 F 98.2 F Pulse Rate 106 H 96 H 91 H Respiratory Rate 27 H 16 14 Blood Pressure 107/69 112/67 117/72 Pulse Oximetry 98 100 98 12/25/17 21:00 12/25/17 22:00 12/25/17 23:00 Temperature 98.5 F Pulse Rate 86 87 89 Respiratory Rate 16 15 23 Blood Pressure 106/64 102/67 141/91 H Pulse Oximetry 97 95 96 12/26/17 00:00 12/26/17 01:00 12/26/17 02:00 Temperature Pulse Rate 86 89 83 Respiratory Rate 16 25 H 15 Blood Pressure 106/66 119/70 95/53 L Pulse Oximetry 96 98 98 12/26/17 03:00 12/26/17 04:00 12/26/17 08:00 Temperature 98.1 F Pulse Rate 87 80 102 H Respiratory Rate 15 14 18 Blood Pressure 114/65 101/60 105/67 Pulse Oximetry 98 98 98 Intake & Output 12/25/17 12/26/17 12/26/17 18:59 06:59 18:59 Intake Total 3000 / 3000 2640 / 2640 Output Total 2350 / 2350 1700 / 1700 600 / 600 Balance 650 / 650 940 / 940 -600 / -600 Weight 45 kg Intake: IV 3000 / 3000 2300 / 2300 NS Inj 1,000 ML @ 125 mls/hr IV 1999 / 1999 .CONT .Q8H DEREK Rx#:[id number] Sodium Bicarbonate 8.4% Inj 150 1000 / 1000 2000 / 2000 MEQ In D5W Inj 850 ML @ 125 mls/hr IV.CONT .Q8H DEREK Rx#: [id number] KCl 20 mEq Premix Inj 20 meq In 300 / 300 100 ml @ 50 mls/hr IV.SIG Q2H PRN Rx#:[id number] Oral 340 / 340 Output: Urine Amount (Catheter) 2350 / 2350 1700 / 1700 600 / 600 Indwelling Urethral Catheter 2350 / 2350 1700 / 1700 600 / 600 Narrative: GENERAL: Patient lying in bed. Appears comfortable. Alert and oriented 3. SKIN: Warm and dry. HEAD: Normocephalic. EYES: No scleral icterus. No injection or drainage. NECK: Supple, trachea midline. No JVD or lymphadenopathy. CARDIOVASCULAR: Regular rate and rhythm without murmurs, gallops, or rubs. RESPIRATORY: Breath sounds equal bilaterally. No accessory muscle use. GASTROINTESTINAL: Abdomen soft, non-tender, nondistended. MUSCULOSKELETAL: No cyanosis, or edema. BACK: Nontender without obvious deformity. No CVA tenderness. - Urinary Catheter Management Indwelling Urethral Catheter Cath placed during this visit: yes Reason for continuing: Hourly intake/output Insertion date: 12/25/17 Insertion time: 06:00 Results - Labs CBC & Chem 7: 12/26/17 03:20 12/26/17 03:00 Laboratory Results - last 24 hr 12/25/17 12/25/17 12/25/17 15:35 17:55 17:55 WBC 9.4 RBC 4.01 Hgb 13.0 Hct 38.2 MCV 95.4 MCH 32.5 MCHC 34.1 RDW 12.2 Plt Count 217 MPV 8.6 Prelim Diff (Auto) Slide review pending Neut % (Auto) 67.8 Lymph % (Auto) 25.9 [place] % (Auto) 5.4 Eos % (Auto) 0.6 Baso % (Auto) 0.3 Neut # (Auto) 6.4 Lymph # (Auto) 2.4 [place] # (Auto) 0.5 Eos # (Auto) 0.1 Baso # (Auto) 0.0 WBC Differential . Diff Scan Auto diff confirmed Differential Comment . PT INR APTT Puncture Site Right radial Patient Temperature 98.6 O2 Saturation 95 ABG pH 7.47 H ABG pCO2 38 ABG pO2 96 ABG HCO3 27 H ABG O2 Content 17.5 ABG Base Excess 3.3 H ABG Methemoglobin 1.5 Emmanuel Test Present Hemoglobin 13.0 Carboxyhemoglobin 1.5 O2 Delivery Device Room air Inspired O2 21 Critical Value No Sodium 143 Potassium 2.9 L* Chloride 110 H Carbon Dioxide 25.6 Anion Gap 7 BUN 2 L Creatinine 0.52 Estimated GFR Greater than 89 POC Glucose Random Glucose 106 Calcium 7.5 L D Prot Corrected Calcium Phosphorus Magnesium Total Bilirubin 0.2 AST 15 ALT 13 Alkaline Phosphatase 86 Total Protein 5.8 L D Albumin 2.8 L D Salicylates 12/26/17 12/26/17 12/26/17 00:14 01:06 03:00 WBC RBC Hgb Hct MCV MCH MCHC RDW Plt Count MPV Prelim Diff (Auto) Neut % (Auto) Lymph % (Auto) [place] % (Auto) Eos % (Auto) Baso % (Auto) Neut # (Auto) Lymph # (Auto) [place] # (Auto) Eos # (Auto) Baso # (Auto) WBC Differential Diff Scan Differential Comment PT INR APTT Puncture Site Patient Temperature O2 Saturation ABG pH ABG pCO2 ABG pO2 ABG HCO3 ABG O2 Content ABG Base Excess ABG Methemoglobin Emmanuel Test Hemoglobin Carboxyhemoglobin O2 Delivery Device Inspired O2 Critical Value Sodium 143 Potassium 3.9 D Chloride 111 H Carbon Dioxide 27.1 Anion Gap 5 BUN 2 L Creatinine 0.56 Estimated GFR Greater than 89 POC Glucose 97 Random Glucose 89 Calcium 7.3 L* Prot Corrected Calcium 8.2 L Phosphorus 1.5 L Magnesium 1.9 Total Bilirubin 0.2 AST 14 L ALT 15 Alkaline Phosphatase 86 Total Protein 5.5 L Albumin 2.9 L Salicylates 5.6 12/26/17 12/26/17 12/26/17 03:20 03:20 05:56 WBC 7.9 RBC 4.01 Hgb 12.7 Hct 37.5 MCV 93.4 MCH 31.6 MCHC 33.8 RDW 12.4 Plt Count 210 MPV 8.8 Prelim Diff (Auto) Neut % (Auto) 57.4 Lymph % (Auto) 37.1 [place] % (Auto) 4.4 Eos % (Auto) 0.8 Baso % (Auto) 0.3 Neut # (Auto) 4.5 Lymph # (Auto) 2.9 [place] # (Auto) 0.3 Eos # (Auto) 0.1 Baso # (Auto) 0.0 WBC Differential . Diff Scan Differential Comment Auto diff final PT 11.4 INR 1.1 APTT 26.4 Puncture Site Patient Temperature O2 Saturation ABG pH ABG pCO2 ABG pO2 ABG HCO3 ABG O2 Content ABG Base Excess ABG Methemoglobin Emmanuel Test Hemoglobin Carboxyhemoglobin O2 Delivery Device Inspired O2 Critical Value Sodium Potassium Chloride Carbon Dioxide Anion Gap BUN Creatinine Estimated GFR POC Glucose 109 Random Glucose Calcium Prot Corrected Calcium Phosphorus Magnesium Total Bilirubin AST ALT Alkaline Phosphatase Total Protein Albumin Salicylates Assessment and Plan - Plan //Amitriptyline overdose -Bicarbonate drip -Frequent labs -Telemetry and frequent EKGs -Poison Control Center appreciated -Neuro checks per unit protocol = Patient stable. QTc not elevated. Transfer to psychiatry. //Bipolar disorder -Hold home meds due to overdose -Psychiatry consultation = Transfer to psychiatry. //DVT GI prophylaxis -Teds SCDs -Subcu Lovenox -Pepcid Discussed Condition With: Patient, nurse. Discharge Planning: Discharge to inpatient psychiatry.
--- NOTE | 2017-12-26 14:10 | P.DS ---
Date of admission: 12/25/17 00:24 Primary care physician: No Primary Care Physician Brief History from admission: 27 year old female presents with a history of intentionally overdosing on amitriptyline prior to arrival. The patient reports that she did this at approximately 9:05 PM. The patient reports that she took 14 tablets of her 100 mg amitriptyline. She does have a history of anxiety, depression, posttraumatic stress disorder, and previous diagnosis of bipolar disorder. She is also on Effexor and takes Advil as needed pain. She denies ever attempting suicide previously. The patient is tearful, intermittently crying during my assessment. She is not providing any significant history or reasoning behind this attempted overdose. She repeatedly is asking for her to come back and see her. The patient according to ambulance services had one episode of vomiting after the ingestion approximately 15 minutes after the ingestion. There were no pill fragments noted. Poison Control Center was contacted by ED attending the patient was started on sodium bicarbonate drip due to prolonged QT interval on EKG. DS: Summary Hospital Course: Patient was monitored in the ICU. She remained stable. EKGs were trended, shows no elevation and QTc. Patient was discharged to inpatient psychiatry. For problem based summary from most recent progress note, please see below. //Amitriptyline overdose -Bicarbonate drip -Frequent labs -Telemetry and frequent EKGs -Poison Control Center appreciated -Neuro checks per unit protocol = Patient stable. QTc not elevated. Transfer to psychiatry. //Bipolar disorder -Hold home meds due to overdose -Psychiatry consultation = Transfer to psychiatry. //DVT GI prophylaxis -Teds SCDs -Subcu Lovenox -Pepcid Discussed Condition With: Patient, nurse. Discharge Planning: Discharge to inpatient psychiatry. - Time Spent with Patient Total time spent providing and/or coordinating discharge services: Less than 30 minutes - Quality: VTE Deep Vein Thrombosis/Pulmonary Embolism Present on Admission: No Exam Vital signs: Vital Signs 12/25/17 16:00 12/25/17 19:00 12/25/17 20:00 Temperature 98.1 F 98.2 F Pulse Rate 106 H 96 H 91 H Respiratory Rate 27 H 16 14 Blood Pressure 107/69 112/67 117/72 Pulse Oximetry 98 100 98 12/25/17 21:00 12/25/17 22:00 12/25/17 23:00 Temperature 98.5 F Pulse Rate 86 87 89 Respiratory Rate 16 15 23 Blood Pressure 106/64 102/67 141/91 H Pulse Oximetry 97 95 96 12/26/17 00:00 12/26/17 01:00 12/26/17 02:00 Temperature Pulse Rate 86 89 83 Respiratory Rate 16 25 H 15 Blood Pressure 106/66 119/70 95/53 L Pulse Oximetry 96 98 98 12/26/17 03:00 12/26/17 04:00 12/26/17 08:00 Temperature 98.1 F Pulse Rate 87 80 102 H Respiratory Rate 15 14 18 Blood Pressure 114/65 101/60 105/67 Pulse Oximetry 98 98 98 Intake & Output 12/25/17 12/26/17 12/26/17 18:59 06:59 18:59 Intake Total 3000 / 3000 2640 / 2640 Output Total 2350 / 2350 1700 / 1700 600 / 600 Balance 650 / 650 940 / 940 -600 / -600 Weight 45 kg Intake: IV 3000 / 3000 2300 / 2300 NS Inj 1,000 ML @ 125 mls/hr IV 1999 / 1999 .CONT .Q8H DEREK Rx#:[id number] Sodium Bicarbonate 8.4% Inj 150 1000 / 1000 2000 / 2000 MEQ In D5W Inj 850 ML @ 125 mls/hr IV.CONT .Q8H DEREK Rx#: [id number] KCl 20 mEq Premix Inj 20 meq In 300 / 300 100 ml @ 50 mls/hr IV.SIG Q2H PRN Rx#:[id number] Oral 340 / 340 Output: Urine Amount (Catheter) 2350 / 2350 1700 / 1700 600 / 600 Indwelling Urethral Catheter 2350 / 2350 1700 / 1700 600 / 600 Results Procedures completed during hospitalization: No invasive procedures. Labs on day of discharge: Labs from last 24 hours 12/26/17 12/26/17 12/26/17 05:56 03:20 03:20 WBC 7.9 RBC 4.01 Hgb 12.7 Hct 37.5 MCV 93.4 MCH 31.6 MCHC 33.8 RDW 12.4 Plt Count 210 MPV 8.8 Prelim Diff (Auto) Neut % (Auto) 57.4 Lymph % (Auto) 37.1 [place] % (Auto) 4.4 Eos % (Auto) 0.8 Baso % (Auto) 0.3 Neut # (Auto) 4.5 Lymph # (Auto) 2.9 [place] # (Auto) 0.3 Eos # (Auto) 0.1 Baso # (Auto) 0.0 WBC Differential . Diff Scan Differential Comment Auto diff final PT 11.4 INR 1.1 APTT 26.4 Puncture Site Patient Temperature O2 Saturation ABG pH ABG pCO2 ABG pO2 ABG HCO3 ABG O2 Content ABG Base Excess ABG Methemoglobin Emmanuel Test Hemoglobin Carboxyhemoglobin O2 Delivery Device Inspired O2 Critical Value Sodium Potassium Chloride Carbon Dioxide Anion Gap BUN Creatinine Estimated GFR POC Glucose 109 Random Glucose Calcium Prot Corrected Calcium Phosphorus Magnesium Total Bilirubin AST ALT Alkaline Phosphatase Total Protein Albumin Salicylates 12/26/17 12/26/17 12/26/17 03:00 01:06 00:14 WBC RBC Hgb Hct MCV MCH MCHC RDW Plt Count MPV Prelim Diff (Auto) Neut % (Auto) Lymph % (Auto) [place] % (Auto) Eos % (Auto) Baso % (Auto) Neut # (Auto) Lymph # (Auto) [place] # (Auto) Eos # (Auto) Baso # (Auto) WBC Differential Diff Scan Differential Comment PT INR APTT Puncture Site Patient Temperature O2 Saturation ABG pH ABG pCO2 ABG pO2 ABG HCO3 ABG O2 Content ABG Base Excess ABG Methemoglobin Emmanuel Test Hemoglobin Carboxyhemoglobin O2 Delivery Device Inspired O2 Critical Value Sodium 143 Potassium 3.9 D Chloride 111 H Carbon Dioxide 27.1 Anion Gap 5 BUN 2 L Creatinine 0.56 Estimated GFR Greater than 89 POC Glucose 97 Random Glucose 89 Calcium 7.3 L* Prot Corrected Calcium 8.2 L Phosphorus 1.5 L Magnesium 1.9 Total Bilirubin 0.2 AST 14 L ALT 15 Alkaline Phosphatase 86 Total Protein 5.5 L Albumin 2.9 L Salicylates 5.6 12/25/17 12/25/17 12/25/17 17:55 17:55 15:35 WBC 9.4 RBC 4.01 Hgb 13.0 Hct 38.2 MCV 95.4 MCH 32.5 MCHC 34.1 RDW 12.2 Plt Count 217 MPV 8.6 Prelim Diff (Auto) Slide review pending Neut % (Auto) 67.8 Lymph % (Auto) 25.9 [place] % (Auto) 5.4 Eos % (Auto) 0.6 Baso % (Auto) 0.3 Neut # (Auto) 6.4 Lymph # (Auto) 2.4 [place] # (Auto) 0.5 Eos # (Auto) 0.1 Baso # (Auto) 0.0 WBC Differential . Diff Scan Auto diff confirmed Differential Comment . PT INR APTT Puncture Site Right radial Patient Temperature 98.6 O2 Saturation 95 ABG pH 7.47 H ABG pCO2 38 ABG pO2 96 ABG HCO3 27 H ABG O2 Content 17.5 ABG Base Excess 3.3 H ABG Methemoglobin 1.5 Emmanuel Test Present Hemoglobin 13.0 Carboxyhemoglobin 1.5 O2 Delivery Device Room air Inspired O2 21 Critical Value No Sodium 143 Potassium 2.9 L* Chloride 110 H Carbon Dioxide 25.6 Anion Gap 7 BUN 2 L Creatinine 0.52 Estimated GFR Greater than 89 POC Glucose Random Glucose 106 Calcium 7.5 L D Prot Corrected Calcium Phosphorus Magnesium Total Bilirubin 0.2 AST 15 ALT 13 Alkaline Phosphatase 86 Total Protein 5.8 L D Albumin 2.8 L D Salicylates - Impressions ITS Impressions Chest X-Ray 12/24/17 21:47 CONCLUSION: No acute cardiopulmonary disease demonstrated. Discharge Plan - Discharge Disposition Patient Disposition: 64 Disc To [facility] Facility - Discharge Condition Condition: Good - Discharge Order Discharge Orders: Discharge Order (Routine); Ordered 12/26/17 Ordered By: Liu Desai - Discharge Details Anticipated Discharge Date: 12/26/17 - Physicians Team Primary Care Provider: Primary Care Semaji,No Attending Provider: Liu Desai Other Providers: Liu Desai MD
[2017-12-26 21:30] VITALS: O2SAT 94
[2017-12-26 21:33] VITALS: BP 133/76; PULSE 114; RESP 18; TEMP 98.2
--- NOTE | 2017-12-26 23:00 | ECG ---
Date Performed: 12/26/2017 Time Performed: 11:55:34 PTAGE: 27 years EKG: SINUS TACHYCARDIA POSSIBLE ANTERIOR MYOCARDIAL INFARCTION , OF INDETERMINATE AGE ABNORMAL E CG PREVIOUS TRACING : 12/25/2017 06.56 Compared to previous tracing, rate has increased DOCTOR: Esvin Beckford Interpretating Date/Time 12/26/2017 23:00:21
== END 2017-12-26 16:00 ==
LOC: NEPC 21:34 → NEDA 12-25 00:24 → HIMC 12-25 03:20
PROVIDERS: ADMIT Internal Medicine; ATTEND Internal Medicine

== ENCOUNTER 2017-12-26 15:59 | Inpatient (IN) ==
[2017-12-26] MEDS ORDERED: Aluminum/Magnesium/Simethacone Susp 30 ML UDC PO PRN (17:01)
[2017-12-26] MEDS ORDERED: Acetaminophen 325 MG Tablet PO PRN (17:01)
[2017-12-26 19:38] LABS: Anion Gap 10 meq/L (5-15); Blood Urea Nitrogen 2 mg/dL (7-18); Calcium 8.5 mg/dL (8.5-10.1); Carbon Dioxide 24.1 meq/L (21.0-32.0); Chloride 109 meq/L (98-107); Cholesterol 164 mg/dL (120-200); Glomerular Filtration Rate Greater Than 89 mL/min (>89); Glucose,Random 84 mg/dL (74-106); HDL Cholesterol 24.1 mg/dL (40.0-60.0); LDL Cholesterol,Calculated 112 mg/dL (0-99); Potassium 3.3 meq/L (3.5-5.1); Sodium 143 meq/L (136-145); Triglycerides 139 mg/dL (42-150)
[2017-12-26] MEDS ORDERED: LORazepam 1 MG Tablet PO ONE (22:15)
[2017-12-26] MEDS ORDERED: Haloperidol Inj 5 MG/ML Ampul ONE (23:12)
[2017-12-26] MEDS ORDERED: Benztropine Inj 2 MG/2 ML Ampul ONE (23:13)
[2017-12-26] MEDS ORDERED: Benztropine Inj 2 MG/2 ML Ampul IM ONE (23:30)
[2017-12-26] MEDS ORDERED: Haloperidol Inj 5 MG/ML Ampul IM ONE (23:30)
[2017-12-27] MEDS ORDERED: Venlafaxine XR 75 MG Capsule PO ONE (12:00)
[2017-12-27] MEDS: LORazepam 1 MG Tablet PO PRN ×2 (12:04→17:52)
--- NOTE | 2017-12-27 16:52 | P.HPPSY ---
Provisional Diagnosis Admission Date: December 26, 2017 16:15 [place] I.: Adjustment disorder with depressed mood Competence Certification of Person's Competence To Provide Express and Informed Consent I have personally examined Escobar Hameed, a [facility] on, December 27, 2017 1636. Express and informed consent means consent voluntarily given in writing, by a competent person, after sufficient explanation and disclosure of the subject matter involved to enable the person to make a knowing and willful decision without any element of force, fraud, deceit, duress, or other form of constraint or coercion. This person is 18 years of age or older, is not now known to be incompetent to consent to treatment with a guardian advocate, and does not have a health care surrogate or proxy currently making medical treatment decisions. I have found this person to be one of the following: [xxx] Competent to provide express and informed consent, as defined above, for voluntary admission to this facility and is competent to provide express and informed consent for treatment. He/she has the consistent capacity to make well reasoned, willful, and knowing decisions concerning his or her medical or mental health treatment. The person fully and consistently understands the purpose of the admission for examination/placement and is fully capable of personally exercising all rights assured [place] [] Incompetent to provide express and informed consent to voluntary admission, and this is incompetent to provide express and informed consent to treatment. The person must be transferred to involuntary status and a petition for a guardian advocate filed with the Circuit Court. [] Refusing to provide express and informed consent to voluntary admission but is competent to provide express and informed consent for treatment. The person must be discharged or transferred to involuntary status. Form shall be completed within 24 hours of a person's arrival at the receiving facility and filed in the clinical record of each person: 1. Admitted on a voluntary basis 2. Permitted to provide express and informed consent to his/her own treatment 3. Allowed to transfer from involuntary to voluntary status 4. Prior to permitting a person to consent to his or her own treatment after having been previously found incompetent to consent to treatment. History of Present Illness Capacity: Has capacity History of Present Illness: Patient initially seen for consult as stated below and transferred to the inpatient psychiatry unit for further psychiatric stabilization. Patient is a 27-year-old woman, , has 1 6-year-old daughter, unemployed, in school, with a past psychiatric history of bipolar disorder, ODD , PTSD, anxiety, with one previous psychiatric admission in 2006, no previous suicide attempts, history of self injurious behavior via cutting, with a substance use history significant for occasional marijuana use, with a past medical history of asthma as per chart, childhood epilepsy, who was brought in under [place] act due to intentional overdose in a suicide attempt which patient had overdosed on amitriptyline, currently in critical care unit for medical stabilization which psychiatry was consulted for evaluation. Patient was found lying hospital bed asleep was able to wake up to interact with interview noted to be tearful throughout interview at times as well as a irritable toward end of interview. Patient states that for the past couple of weeks she has been feeling "horrible" stating that she had been feeling upset that had been working a lot and not having enough time with the family and having recent arguments with him. Patient states that prior to admission she recalls "screaming and yelling at home" and stating that knowing what to do and had told her during argument that if he left she would not be here referring to ending her life. Patient states that she had taken a whole bottle of her medications in front of him which she had attempted to induce vomiting and was subsequently brought to the hospital for treatment. Patient states she is feeling scared that this is something that she could do and regretting having attempted to end her life stated that she wants to be alive for her daughter. She currently reports feeling sad, denying any further suicidal ideations, denies any perceptual disturbances or delusions at this time. Patient was advised that she will likely require inpatient psychiatric stabilization after medical clearance where she did not agree with him he had become upset and irritable toward end of interview. Family psychiatric history: Patient reports mother with bipolar disorder, sister with anxiety, no suicides in the family Past psychiatric history: Previous psychiatric diagnoses of bipolar disorder, ODD, PTSD, anxiety, with one previous psychiatric admission in 2006, denies any previous suicide attempt reports self-injurious behavior via cutting last time being years ago although reports having cut herself recently prior to admission. Patient denies any history of abuse. Patient reports outpatient mental health follow-up at [facility] Patient reports previous psychiatric medication trials include Effexor and amitriptyline but also history of use of Abilify, BuSpar, Adderall, Ativan and lithium. Substance use history: Tobacco use (+), denies any alcohol use and reports occasional marijuana use, twice per years last time being 1 week ago and reports smoking about 2 blunts. Patient denies use of any other drugs. Past medical history: Asthma as per chart, patient reports childhood epilepsy Allergies: Penicillin, Geodon, Benadryl, codeine Social history: , has 1 6-year-old daughter, unemployed, currently in school, no background, no asked to firearms. Patient was transferred to 2600 unit where patient was noted with irritability, yelling at over the phone and demanding to be discharged which patient was transferred to 2700 unit for further management of agitation and was provided with ETO last evening. Patient was found in day room noted B, cooperative interviewed with counselor and nurse. Patient states that she is feeling "well" stating having spoken to her on the phone this morning but did recall having been given ETO last evening stating that she was threatened by staff. She states that she feels much better this morning, and that her is, currently looking for "more support" referring to individual therapy services. He stated her mood is "sadness" stating that she did not want to be here in the hospital as she misses her daughter. Patient recalls her suicide attempt prior to her hospital admission stated that she did not know what else to do at that time he stated that this was not her and that she regrets having attempted to end her life impulsively and that she just wants to be "saying for my daughter". Patient reports having slept well last evening, denying any perceptional services, denying any suicidal homicidal ideations at this time. Discussion of restarted patient on Effexor was reviewed which patient agreed stated that she had done well with this medication for years and would like to resume this. Rest of history as stated above. Collateral information was obtained by patient's stating that he had felt that the patient at time of the overdose had a "fit of rage" and that she took the medications at this part of the moment. He states that this is very unlike her and that she had been doing well for the past couple of years. He mentions that he is planning to visit the patient receiving to assess how she is doing and would like her to resume treatment. - Inpatient Certification I certify that the inpatient services were ordered in accordance with Medicare regulations governing the order. This includes certification that hospital inpatient services are reasonable and necessary and in the case of services not specified as inpatient-only under 42 CFR 419.22(n), that they are appropriately provided as inpatient services in accordance to with the 2-midnight benchmark under 43 CFR 412.3(e) I certify that inpatient psychiatric hospital services are medically necessary. Evaluation and treatment and/or diagnostic testing are expected to improve the patient's condition. The patient needs on a daily basis, active treatment furnished directly by or requiring the supervision of inpatient psychiatric facility personnel. Estimated Total Length of Stay (Days): 5 Plans for Post Hospital Care: Home Review of Systems All other systems reviewed negative except as stated in HPI PMFSH - History History Provided By: Patient, Family Member, Medical Record - Medical History Medical History: Medical History (Last Reviewed 12/27/17 @ 08:04 by Jude Edge) Bipolar disorder PTSD (post-traumatic stress disorder) - Surgical History Surgical History: Surgical History (Last Reviewed 12/27/17 @ 08:04 by Jude Edge) History of bilateral tubal ligation - Tobacco History Second Hand Smoke Exposure: Yes Tobacco Use In Past 30 Days: Yes Smoking Status: Heavy tobacco smoker Tobacco Type: Cigarettes Packs Per Day: 1.5 Cigarettes Per Day: 30.0 - Alcohol History How Often Do You Have a Drink Containing Alcohol: Never - Substance Use History Substance History: No History of Abuse - Travel History Recent Travel in the [place] Within the Last 8 Weeks: No Recent Travel Out of the Country Within the Last 8 Weeks: No - Immunization History Tetanus Immunization: Never Vaccinated Hx Influenza Vaccine This Season: No Quality Measures - Psychiatric History Psychological trauma history: See HPI Violence risk to others in the last 6 months: Low Violence risk to self in the last 6 months: Elevated due to recent suicide attempt prior to her admission to the hospital. - Substance Abuse History Drug or alcohol use in the past 12 months: See HPI - Patient Strengths Patient's strengths (minimum of 2): Verbal and communicative Medications and Allergies Active Medications: Active Medications Al Hydrox/Mg Hydrox/Simethicone (Mag-Al Plus Susp Liq) 30 ml PO Q6H PRN PRN Reason: DYSPEPSIA Al Hydroxide/Mg Hydroxide (Milk Of Magnesia Liq) 30 ml PO DAILY PRN PRN Reason: Mild Constipation Hydroxyzine HCl (Atarax) 50 mg PO Q6H PRN PRN Reason: ANXIETY Lorazepam (Ativan) 1 mg PO Q6H PRN PRN Reason: ANXIETY AND/OR AGITATION Last Admin: 12/27/17 12:04 Dose: 1 mg Trazodone HCl (Desyrel) 50 mg PO HS DEREK Venlafaxine HCl (Effexor Xr) 150 mg PO DAILY DEREK Allergies Allergy/AdvReac Type Severity Reaction Status Date / Time codeine Allergy Severe RASH Verified 12/24/17 22:45 diphenhydramine Allergy Severe TONGUE Verified 12/24/17 22:45 SWELLING penicillin G Allergy Severe RASH Verified 12/24/17 22:45 penicillin V Allergy Severe RASH Verified 12/24/17 22:45 ziprasidone Allergy Severe DECREASED Verified 12/24/17 22:45 BP/SYNCOPE acetaminophen AdvReac Unknown vomiting Verified 12/26/17 17:08 hydrocodone AdvReac Unknown vomiting Verified 12/26/17 17:08 Results - Labs CBC & Chem 7: 12/26/17 17:14 Labs: Laboratory Results - last 24 hr 12/26/17 17:14 Sodium 143 Potassium 3.3 L Chloride 109 H Carbon Dioxide 24.1 Anion Gap 10 BUN 2 L Creatinine 0.64 Estimated GFR Greater than 89 Random Glucose 84 Calcium 8.5 D Triglycerides 139 Cholesterol 164 LDL Cholesterol, Calc 112 H HDL Cholesterol 24.1 L Cholesterol/HDL Ratio 6.80 Exam Vital signs: Intake & Output 12/26/17 12/27/17 12/27/17 18:59 06:59 18:59 Weight 43.8 kg Other: Weight On Admission 43.8 kg Narrative: Patient not noted to be in acute distress, no gross motor abnormalities, no tremors or EPS, no noted psychomotor retardation or agitation. - Constitutional no acute distress, cooperative Mental Status Examination Appearance: Appropriate Consciousness: Alert Orientation: x4 Motor Activity: Normal gait Speech: Unremarkable Language: Adequate Fund of Knowledge: Inadequate Attention and Concentration: Adequate Memory: Unremarkable Mood: Sad Affect: Sad, Other (Tearful at times during interview) Thought Process & Associations: Intact, Goal directed, Linear Thought Content: Appropriate Hallucination Type: None Delusion Type: None Suicidal Ideation: No Suicidal Plan: No Suicidal Intention: No Homicidal Ideation: No Homicidal Plan: No Homicidal Intention: No Insight: Fair Judgment: Impulsive Assessment and Plan - Assessment (1) Adjustment disorder with depressed mood Code(s): F43.21 - Adjustment disorder with depressed mood Status: Acute - Plan Plan: Estimated LOS: [] days Patient is a 19-year-old woman, who carries a diagnosis of bipolar disorder, ODD, PTSD, anxiety disorder, with one previous psychiatric admission in 2006, no previous suicide attempts, history of self-injurious behavior via cutting noted with cluster B personality traits, who was admitted due to recent suicide attempt via overdose in the context of recent argument with which patient was admitted to the inpatient psychiatry unit for further evaluation and management. Patient noted with prominent cluster B personality traits which will influence in patient's chronic risk for self-harm in the future along with history of self-injurious behavior, difficulty with emotional regulation, and poor impulse control. Patient recent suicide attempt likely a result from these risk factors but out an abundance of caution will be held for observation for safety. Patient agrees to voluntary admission, has capacity to consent for treatment. Patient will be resumed on venlafaxine XR 75mg PO x 1 and 150mg PO daily thereafter, trazodone 50mg PO HS for sleep disturbance. Continue to monitor mood and behavior. Discharge planning in progress. Justification for Continued Inpatient Stay: At risk for further decompensation at lower level of care.
[2017-12-27] MEDS ORDERED: traZODone 50 MG Tablet PO SCH (21:00)
[2017-12-27 22:43] LABS: Hemoglobin A1c 5.2 % (4.3-6.0)
[2017-12-28 06:08] VITALS: BP 119/53; PULSE 100; RESP 16; TEMP 97.8; O2SAT 97
[2017-12-28] MEDS ORDERED: Venlafaxine XR 75 MG Capsule PO SCH (09:00)
[2017-12-28 11:09] LABS: Anion Gap 7 meq/L (5-15); Blood Urea Nitrogen 8 mg/dL (7-18); Calcium 9.3 mg/dL (8.5-10.1); Carbon Dioxide 24.3 meq/L (21.0-32.0); Chloride 106 meq/L (98-107); Chol/HDL Ratio 5.47 Ratio; Cholesterol 173 mg/dL (120-200); Glomerular Filtration Rate Greater Than 89 mL/min (>89); Glucose,Random 70 mg/dL (74-106); HDL Cholesterol 31.6 mg/dL (40.0-60.0); LDL Cholesterol,Calculated 128 mg/dL (0-99); Potassium 4.2 meq/L (3.5-5.1); Sodium 137 meq/L (136-145); Triglycerides 69 mg/dL (42-150)
--- NOTE | 2017-12-28 14:19 | P.DIET ---
Nutritional Evaluation Type of nutrition evaluation: initial Nutrition screening: Weight Loss > 10 lbs Subjective Subjective Comments: 100% po for meals today Objective - Diagnosis Adjustment Disorder w/Depressed Mood - Objective Body Weight Used for Calculations: Actual (43.8 kg) Energy Needs - Lower Range (kCal/kg): 28 Energy Needs - Upper Range (kCal/kg): 33 Lower Limit kCal/kg (kCals): 1,226 Upper Limit kCal/kg (kCals): 1,445 Lower Limit Protein Factor (Grams per Kg): 1.1 Upper Limit Protein Factor (Grams per Kg): 1.4 Lower Protein Needs (Protein): 48 Upper Protein Needs (Protein): 61 Fluid Factor (ml/kg): 33 Estimated Fluid Needs (ml): 1,445 Dietitian Reviewed in Medical Record: Current diet, Curent medications, Intake & Output, Labs, Medical history Diet Order: Regular Oral Diet Intake Amount: Good 75-90% Objective Comments: [place] Act here for intentional overdose in a suicide attempt PMH: Bipolar DO, PTSD, Asthma, childhood epilepsy Labs Include: A1C 5.2, LDL 128, HDL 31.6, Chol/HDL ratio 5.47 Assessment Assessment: Pt is at potential nutrition risk r/t reported recent unintentional wt loss. Adequate po intake 50% or greater for meals. Send Ensure w/meals for additional nutrition. Labs reviewed-lipid panel noted. Dietitian will follow. Recommendations: 1. Send Ensure w/meals for additional nutrition 2. Dietitian will follow Dietitian to Monitor: Lab values, Supplement acceptance, Intake & Output, Weight change, PO Intake
[2017-12-28 17:38] LABS: Hemoglobin A1c 5.2 % (4.3-6.0)
--- NOTE | 2017-12-28 18:27 | P.DSPSY ---
Psychiatry Discharge Summary Inpatient Psychiatric care?: Yes Advance Directives: No Mental Health Advance Directive: No Health Care Proxy: No - Admission Admission Date: December 26, 2017 16:15 - Admission Diagnosis (1) Adjustment disorder with depressed mood Code(s): F43.21 - Adjustment disorder with depressed mood Brief History: Patient initially seen for consult as stated below and transferred to the inpatient psychiatry unit for further psychiatric stabilization. Patient is a 27-year-old woman, , has 1 6-year-old daughter, unemployed, in school, with a past psychiatric history of bipolar disorder, ODD , PTSD, anxiety, with one previous psychiatric admission in 2006, no previous suicide attempts, history of self injurious behavior via cutting, with a substance use history significant for occasional marijuana use, with a past medical history of asthma as per chart, childhood epilepsy, who was brought in under [place] act due to intentional overdose in a suicide attempt which patient had overdosed on amitriptyline, currently in critical care unit for medical stabilization which psychiatry was consulted for evaluation. Patient was found lying hospital bed asleep was able to wake up to interact with interview noted to be tearful throughout interview at times as well as a irritable toward end of interview. Patient states that for the past couple of weeks she has been feeling "horrible" stating that she had been feeling upset that had been working a lot and not having enough time with the family and having recent arguments with him. Patient states that prior to admission she recalls "screaming and yelling at home" and stating that knowing what to do and had told her during argument that if he left she would not be here referring to ending her life. Patient states that she had taken a whole bottle of her medications in front of him which she had attempted to induce vomiting and was subsequently brought to the hospital for treatment. Patient states she is feeling scared that this is something that she could do and regretting having attempted to end her life stated that she wants to be alive for her daughter. She currently reports feeling sad, denying any further suicidal ideations, denies any perceptual disturbances or delusions at this time. Patient was advised that she will likely require inpatient psychiatric stabilization after medical clearance where she did not agree with him he had become upset and irritable toward end of interview. Family psychiatric history: Patient reports mother with bipolar disorder, sister with anxiety, no suicides in the family Past psychiatric history: Previous psychiatric diagnoses of bipolar disorder, ODD, PTSD, anxiety, with one previous psychiatric admission in 2006, denies any previous suicide attempt reports self-injurious behavior via cutting last time being years ago although reports having cut herself recently prior to admission. Patient denies any history of abuse. Patient reports outpatient mental health follow-up at [facility]. Patient reports previous psychiatric medication trials include Effexor and amitriptyline but also history of use of Abilify, BuSpar, Adderall, Ativan and lithium. Substance use history: Tobacco use (+), denies any alcohol use and reports occasional marijuana use, twice per years last time being 1 week ago and reports smoking about 2 blunts. Patient denies use of any other drugs. Past medical history: Asthma as per chart, patient reports childhood epilepsy Allergies: Penicillin, Geodon, Benadryl, codeine Social history: , has 1 6-year-old daughter, unemployed, currently in school, no background, no asked to firearms. Patient was transferred to 2600 unit where patient was noted with irritability, yelling at over the phone and demanding to be discharged which patient was transferred to 2700 unit for further management of agitation and was provided with ETO last evening. Patient was found in day room noted B, cooperative interviewed with counselor and nurse. Patient states that she is feeling "well" stating having spoken to her on the phone this morning but did recall having been given ETO last evening stating that she was threatened by staff. She states that she feels much better this morning, and that her is, currently looking for "more support" referring to individual therapy services. He stated her mood is "sadness" stating that she did not want to be here in the hospital as she misses her daughter. Patient recalls her suicide attempt prior to her hospital admission stated that she did not know what else to do at that time he stated that this was not her and that she regrets having attempted to end her life impulsively and that she just wants to be "saying for my daughter". Patient reports having slept well last evening, denying any perceptional services, denying any suicidal homicidal ideations at this time. Discussion of restarted patient on Effexor was reviewed which patient agreed stated that she had done well with this medication for years and would like to resume this. Rest of history as stated above. Collateral information was obtained by patient's stating that he had felt that the patient at time of the overdose had a "fit of rage" and that she took the medications at this part of the moment. He states that this is very unlike her and that she had been doing well for the past couple of years. He mentions that he is planning to visit the patient receiving to assess how she is doing and would like her to resume treatment. Tobacco Use In Past 30 Days: Yes How Often Do You Have a Drink Containing Alcohol: Never Hospital Course: Patient is a 27-year-old woman, , has 1 6-year-old daughter, unemployed, in school, with a past psychiatric history of bipolar disorder, ODD , PTSD, anxiety, with one previous psychiatric admission in 2006, no previous suicide attempts, history of self injurious behavior via cutting, with a substance use history significant for occasional marijuana use, with a past medical history of asthma as per chart, childhood epilepsy, who was brought in under [place] act due to intentional overdose in a suicide attempt which patient had overdosed on amitriptyline which she was transferred to the inpatient psychiatry for further evaluation and management. Patient restarted on bupropion XL and titrated to 150mg daily, trazodone 50mg PO daily at bedtime which she tolerated well with no notable adverse drug reactions. Patient was noted with irritability initially with episode of agitation which required ETO and moved to a higher acuity unit. Patient later was able to maintain adequate behavioral control, noted with improvement in mood, noted to have denied having any suicidal ideations since admission. She was observed by staff to not have had any behavioral disturbances since, not having made any suicidal or homicidal statements and maintained stable mood through admission and was noted to participate with staff adequately. Patient was noted to participate in self care, engaging with staff and maintaining adequate hygiene. Patient reported feeling more hopeful, continued to deny any suicidal ideation, wanting to live for her family, future oriented and motivated to continue to work out her relationship with and continue with outpatient follow up. Treatment team was able to set up outpatient follow up appointments which the patient can continue current medication regimen. Upon discharge patient stated that she was feeling good, reported feeling well with the treatment, as well as motivation to continue recommendations and denied any SI, HI, perceptual disturbances or delusions. was contacted prior to discharge and expressed wanting patient discharged and denied any safety concern. Weighing the acute, chronic, and protective factors and based on the available evidence, I public service officer to a reasonable degree of medical certainty that the patient is at low imminent risk of harm to self or others from a mental illness as defined under the [place] act and his level of function is adequate as observed on the unit for planned level of outpatient care. Patient was counseled regarding warning signs for need to return to the psychiatric emergency room as part of a general safety plan. Patient advised to call 911 or go nearest ED in case of emergency. Patient agreed with plan. - Discharge Discharge Date: 12/28/17 - Discharge Diagnosis (1) Adjustment disorder with depressed mood Code(s): F43.21 - Adjustment disorder with depressed mood Status: Acute Discharge Disposition: Home - Discharge Instructions Discharge Diet: Regular Diet Activities You Can Perform: Regular- No Restrictions - Discharge Time > 30 minutes Mental Status Examination Appearance: Appropriate Consciousness: Alert Orientation: x4 Motor Activity: Normal gait Speech: Unremarkable Language: Adequate Fund of Knowledge: Inadequate Attention and Concentration: Adequate Memory: Unremarkable Mood: Appropriate Affect: Appropriate Thought Process & Associations: Intact, Goal directed, Linear Thought Content: Appropriate Hallucination Type: None Delusion Type: None Suicidal Ideation: No Suicidal Plan: No Suicidal Intention: No Homicidal Ideation: No Homicidal Plan: No Homicidal Intention: No Insight: Fair Judgment: Impulsive Discharge/Advance Care Plan - Results Vital Signs: Last Vital Signs Temp 97.8 F 12/28/17 06:07 Pulse 100 H 12/28/17 06:07 Resp 16 12/28/17 06:07 BP 119/53 L 12/28/17 06:07 Pulse Ox 97 12/28/17 06:07 Lab Results: Abnormal Lab Results 12/26/17 12/28/17 17:14 10:20 Sodium 137 Potassium 4.2 D Chloride 106 Carbon Dioxide 24.3 Anion Gap 7 BUN 8 Creatinine 0.68 Estimated GFR Greater than 89 Random Glucose 70 L Hemoglobin A1c 5.2 Calcium 9.3 D Triglycerides 69 Cholesterol 173 LDL Cholesterol, Calc 128 H HDL Cholesterol 31.6 L Cholesterol/HDL Ratio 5.47 Laboratory Results Hemoglobin A1c 5.2 % (4.3-6.0) 12/26/17 17:14 Triglycerides 69 mg/dL (42-150) 12/28/17 10:20 Cholesterol 173 mg/dL (120-200) 12/28/17 10:20 LDL Cholesterol, Calc 128 mg/dL (0-99) H 12/28/17 10:20 HDL Cholesterol 31.6 mg/dL (40.0-60.0) L 12/28/17 10:20 Summary of Procedures: none Pending Results: None - Medications Number of antipsychotic medications at discharge: 0 - Discharge Care Plan Goals to Promote Your Health: * To prevent worsening of your condition and complications * To maintain your health at the optimal level Directions to Meet Your Goals: Take your medications as prescribed Follow your dietary instruction Follow activity as directed Keep your appointments as scheduled Take your immunizations and boosters as scheduled If your symptoms worsen call your PCP, if no PCP go to Urgent Care Center or Emergency Room For 12/12 questions related to your inpatient stay or results of tests pending at discharge, please contact Dr. Con Polanco MD at Smoking is Dangerous to Your Health. Avoid second hand smoking
== END 2017-12-28 13:55 | disposition home or self-care (01) ==
LOC: H260 16:15 → H270 22:08
PROVIDERS: ADMIT Student in an Organized Health Care Education/Training Program; ATTEND Student in an Organized Health Care Education/Training Program